=== PATIENT | female | born 1975 | race Caucasian/White ===

== ENCOUNTER → 2022-08-06 06:27 | Outpatient (CLI) | payer BC, SELFPAY ==
[2022-08-06 20:40] LABS: Alanine Aminotransferase 29 U/L (12-78); Albumin Level 4.1 g/dl (3.5-5.0); Albumin/Globulin Ratio 1.3 (1.1-1.8); Alkaline Phosphatase 144 U/L (38-126); Anion Gap 18.3 mEq/L (5-15); Aspartate Amino Transferase 55 U/L (14-36); Bilirubin,Total 0.9 mg/dl (0.2-1.3); Blood Urea Nitrogen 14 mg/dl (7-17); Calcium 9.1 mg/dl (8.4-10.2); Carbon Dioxide 25 mmol/L (22.0-30.0); Chloride 96 mmol/L (98-107); Chol/HDL Ratio 4.4 (1-3.5); Cholesterol 219 mg/dl (140-200); Estimated Glomerular Filt Rate 89 ml/min (>60); GFR (African American) 108 ML/MIN (>60); Globulin 3.2 g/dL (1.3-3.2); Glucose 100 mg/dl (74-100); HDL Cholesterol 50 mg/dl (40-60); Potassium 4.3 mmoL/L (3.5-5.1); Sodium 135 mmol/L (136-145); Total Protein,Serum 7.3 g/dl (6.3-8.2); Triglycerides 89 mg/dl (30-150); VLDL Cholesterol 18 mg/dL (0-40)
[2022-08-06 20:52] LABS: Direct LDL Cholesterol 143.27 mg/dL (100-129)
[2022-08-06 21:10] LABS: Thyroid Stimulating Hormone 1.44 uIU/mL (0.465-4.68)
[2022-08-06 22:08] LABS: 25-OH Vitamin D, Total 22.4 ng/mL (30-100)
[2022-08-06 22:09] LABS: Free T4 (Free Thyroxine) 1.81 ng/dl (0.78-2.19)
== END ==
PROVIDERS: PCP Nurse Practitioner; Visit Provider Nurse Practitioner
DX: E03.9 Hypothyroidism, unspecified (principal); I10 Essential (primary) hypertension; E66.9 Obesity, unspecified; E55.9 Vitamin D deficiency, unspecified; Z68.42 Body mass index [BMI] 45.0-49.9, adult; Z13.220 Encounter for screening for lipoid disorders; Z79.899 Other long term (current) drug therapy
CPT/HCPCS: 80053; 80061; 82306; 84439; 84443

== ENCOUNTER → 2022-11-05 08:40 | Outpatient (CLI) | payer BC, SELFPAY ==
[2022-11-05 20:24] LABS: Basophils # 0.1 K/mm3 (0-0.2); Basophils % 0.9 % (0.1-2.0); Eosinophils # 0.1 K/mm3 (0.0-0.4); Eosinophils % 2.1 % (0.1-12.0); Hematocrit 41.6 % (37.0-47.0); Lymphocytes # 1.9 K/mm3 (0.7-4.5); Lymphocytes % 29.3 % (10-50); Mean Corpuscular HGB Conc 31.2 g/dL (31.8-35.4); Mean Corpuscular Hemoglobin 26.6 pg (27.0-31.2); Mean Corpuscular Volume 85.3 fl (81-99); Monocytes # 0.3 K/mm3 (0.1-1.0); Monocytes % 4.2 % (1.7-9.3); Neutrophils # 4.1 K/mm3 (1.8-7.8); Neutrophils % 63.3 % (37.0-80.0); Platelet Count 386 K/mm3 (142-424); Red Blood Count 4.88 M/mm3 (4.20-5.40); Red Cell Distribution Width 13.9 % (11.5-17.5); White Blood Count 6.5 K/mm3 (4.8-10.8)
[2022-11-05 20:31] LABS: Alanine Aminotransferase 27 U/L (12-78); Albumin/Globulin Ratio 1.3 (1.1-1.8); Alkaline Phosphatase 139 U/L (38-126); Anion Gap 11.9 mEq/L (5-15); Aspartate Amino Transferase 45 U/L (14-36); Bilirubin,Total 0.5 mg/dl (0.2-1.3); Blood Urea Nitrogen 12 mg/dl (7-17); Calcium 9.6 mg/dl (8.4-10.2); Carbon Dioxide 27 mmol/L (22.0-30.0); Chloride 104 mmol/L (98-107); Chol/HDL Ratio 4.5 (1-3.5); Cholesterol 221 mg/dl (140-200); Estimated Glomerular Filt Rate 107 ml/min (>60); GFR (African American) 129 ML/MIN (>60); Globulin 3.1 g/dL (1.3-3.2); Glucose 127 mg/dl (74-100); HDL Cholesterol 49 mg/dl (40-60); Potassium 3.9 mmoL/L (3.5-5.1); Sodium 139 mmol/L (136-145); Total Protein,Serum 7.1 g/dl (6.3-8.2); Triglycerides 89 mg/dl (30-150); VLDL Cholesterol 18 mg/dL (0-40)
[2022-11-05 20:37] LABS: Hemoglobin A1C 5.7 % (4.0-6.0)
[2022-11-05 20:48] LABS: 25-OH Vitamin D, Total 41.7 ng/mL (30-100)
[2022-11-05 20:54] LABS: Microalbumin < 6.000 mg/L (0-16.7)
[2022-11-05 21:19] LABS: Vitamin B12 353 pg/mL (239-931)
== END ==
PROVIDERS: PCP Nurse Practitioner; Visit Provider Nurse Practitioner
DX: E03.9 Hypothyroidism, unspecified (principal); E78.5 Hyperlipidemia, unspecified; I10 Essential (primary) hypertension; E55.9 Vitamin D deficiency, unspecified; E66.9 Obesity, unspecified; Z68.42 Body mass index [BMI] 45.0-49.9, adult
CPT/HCPCS: 80053; 80061; 82043; 82306; 82607; 83036; 84439; 84443; 85025

== ENCOUNTER → 2023-01-28 23:20 | Outpatient (CLI) | payer BC, SELFPAY ==
[2023-01-28 18:56] LABS: Creatinine,Urine Random 84 mg/dL (Not Estab.)
[2023-01-28 18:59] LABS: Microalbumin < 6.000 mg/L (0-16.7)
== END ==
PROVIDERS: PCP Nurse Practitioner; Visit Provider Nurse Practitioner
DX: I10 Essential (primary) hypertension (principal)
CPT/HCPCS: 82043; 82570

== ENCOUNTER → 2023-04-29 08:42 | Outpatient (CLI) | payer BC, SELFPAY ==
[2023-04-29 19:31] LABS: Alanine Aminotransferase 22 U/L (12-78); Albumin Level 3.9 g/dl (3.5-5.0); Albumin/Globulin Ratio 1.3 (1.1-1.8); Alkaline Phosphatase 118 U/L (38-126); Anion Gap 15.6 mEq/L (5-15); Aspartate Amino Transferase 41 U/L (14-36); Bilirubin,Total 1.1 mg/dl (0.2-1.3); Blood Urea Nitrogen 12 mg/dl (7-17); Calcium 8.9 mg/dl (8.4-10.2); Carbon Dioxide 26 mmol/L (22.0-30.0); Chloride 100 mmol/L (98-107); Chol/HDL Ratio 3.8 (1-3.5); Cholesterol 204 mg/dl (140-200); Estimated Glomerular Filt Rate 131 ml/min (>60); GFR (African American) 159 ML/MIN (>60); Glucose 101 mg/dl (74-100); HDL Cholesterol 54 mg/dl (40-60); Potassium 3.6 mmoL/L (3.5-5.1); Sodium 138 mmol/L (136-145); Total Protein,Serum 6.9 g/dl (6.3-8.2); Triglycerides 96 mg/dl (30-150); VLDL Cholesterol 19 mg/dL (0-40)
[2023-04-29 19:43] LABS: Direct LDL Cholesterol 118.64 mg/dL (100-129)
[2023-04-29 19:48] LABS: Free T4 (Free Thyroxine) 1.69 ng/dl (0.78-2.19)
[2023-04-29 19:52] LABS: Hemoglobin A1C 5.3 % (4.0-6.0)
[2023-04-29 20:02] LABS: Thyroid Stimulating Hormone 1.39 uIU/mL (0.465-4.68)
[2023-04-29 20:22] LABS: Vitamin B12 310 pg/mL (239-931)
== END ==
PROVIDERS: PCP Nurse Practitioner; Visit Provider Nurse Practitioner
DX: E03.9 Hypothyroidism, unspecified (principal); E78.5 Hyperlipidemia, unspecified; I10 Essential (primary) hypertension; E66.9 Obesity, unspecified; Z68.42 Body mass index [BMI] 45.0-49.9, adult
CPT/HCPCS: 80053; 80061; 82607; 83036; 84439; 84443

== ENCOUNTER → 2023-06-03 23:35 | Outpatient (CLI) | payer BC, SELFPAY ==
[2023-06-03 19:26] LABS: Basophils % 0.6 % (0.1-2.0); Eosinophils # 0.1 K/mm3 (0.0-0.4); Eosinophils % 1.4 % (0.1-12.0); Hematocrit 40.3 % (37.0-47.0); Lymphocytes # 2.4 K/mm3 (0.7-4.5); Lymphocytes % 35.6 % (10-50); Mean Corpuscular HGB Conc 32.3 g/dL (31.8-35.4); Mean Corpuscular Hemoglobin 26.7 pg (27.0-31.2); Mean Corpuscular Volume 82.4 fl (81-99); Mean Platelet Volume 9.4 fl (7.4-10.4); Monocytes # 0.5 K/mm3 (0.1-1.0); Monocytes % 6.9 % (1.7-9.3); Neutrophils # 3.7 K/mm3 (1.8-7.8); Neutrophils % 55.5 % (37.0-80.0); Platelet Count 402 K/mm3 (142-424); Red Blood Count 4.89 M/mm3 (4.20-5.40); White Blood Count 6.7 K/mm3 (4.8-10.8)
== END ==
PROVIDERS: PCP Nurse Practitioner; Visit Provider Nurse Practitioner
DX: J06.9 Acute upper respiratory infection, unspecified (principal); R05.9 Cough, unspecified
CPT/HCPCS: 85025

== ENCOUNTER → 2023-07-30 11:00 | Outpatient (CLI) | payer BC, SELFPAY ==
[2023-07-30 18:34] LABS: Alanine Aminotransferase 26 U/L (12-78); Albumin Level 4.1 g/dl (3.5-5.0); Albumin/Globulin Ratio 1.2 (1.1-1.8); Alkaline Phosphatase 146 U/L (38-126); Anion Gap 13.5 mEq/L (5-15); Aspartate Amino Transferase 42 U/L (14-36); Bilirubin,Total 1.1 mg/dl (0.2-1.3); Blood Urea Nitrogen 11 mg/dl (7-17); Calcium 9.6 mg/dl (8.4-10.2); Carbon Dioxide 28 mmol/L (22.0-30.0); Chloride 101 mmol/L (98-107); Chol/HDL Ratio 4.6 (1-3.5); Cholesterol 220 mg/dl (140-200); Estimated Glomerular Filt Rate 106 ml/min (>60); GFR (African American) 129 ML/MIN (>60); Globulin 3.5 g/dL (1.3-3.2); Glucose 101 mg/dl (74-100); HDL Cholesterol 48 mg/dl (40-60); Potassium 3.5 mmoL/L (3.5-5.1); Sodium 139 mmol/L (136-145); Total Protein,Serum 7.6 g/dl (6.3-8.2); Triglycerides 96 mg/dl (30-150); VLDL Cholesterol 19 mg/dL (0-40)
[2023-07-30 18:51] LABS: 25-OH Vitamin D, Total 62.4 ng/mL (30-100)
[2023-07-30 19:24] LABS: Vitamin B12 467 pg/mL (239-931)
== END ==
PROVIDERS: PCP Nurse Practitioner; Visit Provider Nurse Practitioner
DX: I10 Essential (primary) hypertension (principal); E55.9 Vitamin D deficiency, unspecified; E78.5 Hyperlipidemia, unspecified; E66.9 Obesity, unspecified; Z68.41 Body mass index [BMI] 40.0-44.9, adult
CPT/HCPCS: 80053; 80061; 82306; 82607

== ENCOUNTER → 2023-10-29 23:19 | Outpatient (CLI) | payer BC, SELFPAY ==
[2023-10-29 18:53] LABS: Hemoglobin A1C 5.3 % (4.0-6.0)
[2023-10-29 19:05] LABS: Alanine Aminotransferase 29 U/L (12-78); Albumin Level 4.2 g/dl (3.5-5.0); Albumin/Globulin Ratio 1.3 (1.1-1.8); Alkaline Phosphatase 122 U/L (38-126); Anion Gap 11.7 mEq/L (5-15); Aspartate Amino Transferase 48 U/L (14-36); Bilirubin,Total 0.7 mg/dl (0.2-1.3); Blood Urea Nitrogen 16 mg/dl (7-17); Carbon Dioxide 26 mmol/L (22.0-30.0); Chloride 103 mmol/L (98-107); Chol/HDL Ratio 4.5 (1-3.5); Cholesterol 212 mg/dl (140-200); Estimated Glomerular Filt Rate 106 ml/min (>60); GFR (African American) 129 ML/MIN (>60); Globulin 3.2 g/dL (1.3-3.2); Glucose 98 mg/dl (74-100); HDL Cholesterol 47 mg/dl (40-60); Potassium 3.7 mmoL/L (3.5-5.1); Sodium 137 mmol/L (136-145); Total Protein,Serum 7.4 g/dl (6.3-8.2); Triglycerides 83 mg/dl (30-150); VLDL Cholesterol 17 mg/dL (0-40)
[2023-10-29 19:19] LABS: Direct LDL Cholesterol 131.69 mg/dL (100-129)
[2023-10-29 19:22] LABS: Free T4 (Free Thyroxine) 1.65 ng/dl (0.78-2.19)
[2023-10-29 19:35] LABS: Thyroid Stimulating Hormone 0.95 uIU/mL (0.465-4.68)
== END ==
PROVIDERS: PCP Nurse Practitioner; Visit Provider Nurse Practitioner
DX: E03.9 Hypothyroidism, unspecified (principal); E78.5 Hyperlipidemia, unspecified; I10 Essential (primary) hypertension; E66.9 Obesity, unspecified; Z68.41 Body mass index [BMI] 40.0-44.9, adult
CPT/HCPCS: 80053; 80061; 83036; 84439; 84443

== ENCOUNTER 2024-02-03 18:23 | Outpatient (CLI) | payer BC, SELFPAY ==
[2024-02-03 18:40] LABS: Alanine Aminotransferase 26 U/L (12-78); Albumin Level 4.5 g/dl (3.5-5.0); Albumin/Globulin Ratio 1.3 (1.1-1.8); Alkaline Phosphatase 139 U/L (38-126); Anion Gap 14.2 mEq/L (5-15); Aspartate Amino Transferase 35 U/L (14-36); Bilirubin,Total 0.8 mg/dl (0.2-1.3); Blood Urea Nitrogen 14 mg/dl (7-17); Calcium 9.6 mg/dl (8.4-10.2); Carbon Dioxide 26 mmol/L (22.0-30.0); Chloride 103 mmol/L (98-107); Cholesterol 235 mg/dl (140-200); Estimated Glomerular Filt Rate 106 ml/min (>60); GFR (African American) 128 ML/MIN (>60); Globulin 3.4 g/dL (1.3-3.2); Glucose 101 mg/dl (74-100); HDL Cholesterol 47 mg/dl (40-60); Potassium 4.2 mmoL/L (3.5-5.1); Sodium 139 mmol/L (136-145); Total Protein,Serum 7.9 g/dl (6.3-8.2); Triglycerides 137 mg/dl (30-150); VLDL Cholesterol 27 mg/dL (0-40)
[2024-02-03 18:51] LABS: Direct LDL Cholesterol 134.34 mg/dL (100-129)
[2024-02-03 18:54] LABS: Creatinine,Urine Random 90 mg/dL (Not Estab.)
[2024-02-03 19:17] LABS: Hemoglobin A1C 5.6 % (4.0-6.0)
[2024-02-03 19:18] LABS: Microalbumin < 6.000 mg/L (0-16.7)
== END 2024-02-03 23:59 ==
LOC: LAB.DROPOF 18:24
PROVIDERS: PCP Nurse Practitioner; Visit Provider Nurse Practitioner
DX: I10 Essential (primary) hypertension (principal); E78.5 Hyperlipidemia, unspecified; E66.9 Obesity, unspecified; Z68.41 Body mass index [BMI] 40.0-44.9, adult
CPT/HCPCS: 80053; 80061; 82043; 82570; 83036

== ENCOUNTER 2024-05-05 09:12 | Outpatient (CLI) | payer BC, SELFPAY ==
[2024-05-05 18:50] LABS: Alanine Aminotransferase 25 U/L (12-78); Albumin Level 4.2 g/dl (3.5-5.0); Albumin/Globulin Ratio 1.4 (1.1-1.8); Alkaline Phosphatase 129 U/L (38-126); Anion Gap 13.8 mEq/L (5-15); Aspartate Amino Transferase 35 U/L (14-36); Bilirubin,Total 0.9 mg/dl (0.2-1.3); Blood Urea Nitrogen 14 mg/dl (7-17); Calcium 9.3 mg/dl (8.4-10.2); Carbon Dioxide 28 mmol/L (22.0-30.0); Chloride 101 mmol/L (98-107); Chol/HDL Ratio 4.6 (1-3.5); Cholesterol 228 mg/dl (140-200); Estimated Glomerular Filt Rate 131 ml/min (>60); GFR (African American) 158 ML/MIN (>60); Globulin 3.1 g/dL (1.3-3.2); Glucose 97 mg/dl (74-100); HDL Cholesterol 50 mg/dl (40-60); Potassium 3.8 mmoL/L (3.5-5.1); Sodium 139 mmol/L (136-145); Total Protein,Serum 7.3 g/dl (6.3-8.2); Triglycerides 93 mg/dl (30-150); VLDL Cholesterol 19 mg/dL (0-40)
[2024-05-05 19:02] LABS: Direct LDL Cholesterol 139.23 mg/dL (100-129)
[2024-05-05 19:08] LABS: Free T4 (Free Thyroxine) 1.46 ng/dl (0.78-2.19)
[2024-05-05 19:28] LABS: Hemoglobin A1C 5.2 % (4.0-6.0)
[2024-05-05 20:14] LABS: Thyroid Stimulating Hormone 1.74 uIU/mL (0.465-4.68)
== END 2024-05-05 23:59 | disposition home or self-care (01) ==
LOC: LAB.DROPOF 05-06 09:12
PROVIDERS: PCP Nurse Practitioner; Visit Provider Nurse Practitioner
DX: E03.9 Hypothyroidism, unspecified (principal); I10 Essential (primary) hypertension; E78.5 Hyperlipidemia, unspecified; Z68.41 Body mass index [BMI] 40.0-44.9, adult; E66.9 Obesity, unspecified
CPT/HCPCS: 80053; 80061; 83036; 84439; 84443

== ENCOUNTER 2024-08-05 08:52 | Outpatient (CLI) | payer BC, SELFPAY ==
[2024-08-05 18:25] LABS: Microalbumin < 6.000 mg/L (0-16.7)
[2024-08-05 18:26] LABS: Creatinine,Urine Random 73 mg/dL (Not Estab.)
[2024-08-05 18:33] LABS: Basophils # 0.1 K/mm3 (0-0.2); Basophils % 0.7 % (0.1-2.0); Eosinophils # 0.2 K/mm3 (0.0-0.4); Hematocrit 45.7 % (37.0-47.0); Hemoglobin 14.1 g/dL (12.2-16.2); Lymphocytes # 2.2 K/mm3 (0.7-4.5); Lymphocytes % 27.4 % (10-50); Mean Corpuscular HGB Conc 30.9 g/dL (31.8-35.4); Mean Corpuscular Hemoglobin 27.9 pg (27.0-31.2); Mean Corpuscular Volume 90.5 fl (81-99); Mean Platelet Volume 11.1 fl (7.4-10.4); Monocytes # 0.4 K/mm3 (0.1-1.0); Neutrophils # 5.3 K/mm3 (1.8-7.8); Neutrophils % 64.9 % (37.0-80.0); Platelet Count 367 K/mm3 (142-424); Red Blood Count 5.05 M/mm3 (4.20-5.40); Red Cell Distribution Width 14.1 % (11.5-17.5); White Blood Count 8.1 K/mm3 (4.8-10.8)
[2024-08-05 18:58] LABS: Alanine Aminotransferase 25 U/L (12-78); Albumin/Globulin Ratio 1.1 (1.1-1.8); Alkaline Phosphatase 104 U/L (38-126); Aspartate Amino Transferase 33 U/L (14-36); Bilirubin,Total 0.7 mg/dl (0.2-1.3); Blood Urea Nitrogen 14 mg/dl (7-17); Calcium 9.6 mg/dl (8.4-10.2); Carbon Dioxide 26 mmol/L (22.0-30.0); Chloride 106 mmol/L (98-107); Chol/HDL Ratio 4.2 (1-3.5); Cholesterol 228 mg/dl (140-200); Estimated Glomerular Filt Rate 131 ml/min (>60); GFR (African American) 158 ML/MIN (>60); Globulin 3.5 g/dL (1.3-3.2); Glucose 93 mg/dl (74-100); HDL Cholesterol 54 mg/dl (40-60); Sodium 138 mmol/L (136-145); Total Protein,Serum 7.5 g/dl (6.3-8.2); Triglycerides 90 mg/dl (30-150); VLDL Cholesterol 18 mg/dL (0-40)
[2024-08-05 19:10] LABS: 25-OH Vitamin D, Total 67.9 ng/mL (30-100)
[2024-08-05 19:14] LABS: Direct LDL Cholesterol 147.02 mg/dL (100-129)
[2024-08-05 19:48] LABS: Vitamin B12 470 pg/mL (239-931)
== END 2024-08-05 23:59 | disposition home or self-care (01) ==
LOC: LAB.DROPOF 08-06 10:04
PROVIDERS: PCP Nurse Practitioner; Visit Provider Nurse Practitioner
DX: I10 Essential (primary) hypertension (principal); E03.9 Hypothyroidism, unspecified; E66.9 Obesity, unspecified; E78.5 Hyperlipidemia, unspecified; E55.9 Vitamin D deficiency, unspecified; Z68.41 Body mass index [BMI] 40.0-44.9, adult
CPT/HCPCS: 80053; 80061; 82043; 82306; 82570; 82607; 85025

== ENCOUNTER 2024-11-07 10:17 | Outpatient (CLI) | payer BC, SELFPAY ==
[2024-11-07 11:42] LABS: Erythrocyte Sedimentation Rate 87 mm/hr (0-30)
[2024-11-07 11:57] LABS: Hemoglobin A1C 5.3 % (4.0-6.0)
[2024-11-07 12:24] LABS: Albumin Level 4.3 g/dl (3.5-5.0); Chloride 103 mmol/L (98-107); Potassium 3.7 mmoL/L (3.5-5.1); Sodium 139 mmol/L (136-145)
[2024-11-07 12:27] LABS: Alanine Aminotransferase 23 U/L (12-78); Albumin/Globulin Ratio 1.5 (1.1-1.8); Alkaline Phosphatase 133 U/L (38-126); Anion Gap 10.7 mEq/L (5-15); Aspartate Amino Transferase 36 U/L (14-36); Bilirubin,Total 1.1 mg/dl (0.2-1.3); Blood Urea Nitrogen 11 mg/dl (7-17); Calcium 9.4 mg/dl (8.4-10.2); Carbon Dioxide 29 mmol/L (22.0-30.0); Chol/HDL Ratio 4.5 (1-3.5); Cholesterol 217 mg/dl (140-200); Estimated Glomerular Filt Rate 88 ml/min (>60); GFR (African American) 107 ML/MIN (>60); Globulin 2.9 g/dL (1.3-3.2); Glucose 93 mg/dl (74-100); HDL Cholesterol 48 mg/dl (40-60); Total Protein,Serum 7.2 g/dl (6.3-8.2); Triglycerides 91 mg/dl (30-150); VLDL Cholesterol 18 mg/dL (0-40)
[2024-11-07 12:33] LABS: C-Reactive Protein 20.7 mg/L (0-4)
[2024-11-07 12:38] LABS: Direct LDL Cholesterol 132.46 mg/dL (100-129)
[2024-11-07 12:45] LABS: Free T4 (Free Thyroxine) 1.33 ng/dl (0.78-2.19)
[2024-11-07 12:58] LABS: Thyroid Stimulating Hormone 1.36 uIU/mL (0.465-4.68)
[2024-11-07 15:13] LABS: Uric Acid 5.5 mg/dl (2.5-6.2)
[2024-11-09 11:25] LABS: Anti-Centromere B Antibodies <0.2 AI (0.0-0.9); Anti-DNA (DS) Ab Qn <1 IU/mL (0-9); Anti-Jo-1 <0.2 AI (0.0-0.9); Anti-Smith Antibody <0.2 AI (0.0-0.9); Antichromatin Antibodies <0.2 AI (0.0-0.9); Antiscleroderma-70 Antibodies <0.2 AI (0.0-0.9); RNP Antibodies <0.2 AI (0.0-0.9); Sjogren's Anti-SS-A <0.2 AI (0.0-0.9); Sjogren's Anti-SS-B <0.2 AI (0.0-0.9)
[2024-11-09 14:18] LABS: RA Latex Turbid. 11.7 IU/mL (<14.0)
[2024-11-10 09:58] LABS: Antinuclear Antibodies, IFA Negative (.)
== END 2024-11-07 23:59 | disposition home or self-care (01) ==
LOC: LAB 10:19
PROVIDERS: PCP Nurse Practitioner; Visit Provider Nurse Practitioner
DX: I10 Essential (primary) hypertension (principal); E03.9 Hypothyroidism, unspecified; E66.9 Obesity, unspecified; E78.5 Hyperlipidemia, unspecified; M25.50 Pain in unspecified joint; Z68.41 Body mass index [BMI] 40.0-44.9, adult
CPT/HCPCS: 36415; 80053; 80061; 83036; 84439; 84443; 84550; 85651; 86038; 86140; 86225; 86235; 86431

== ENCOUNTER 2025-08-10 10:01 | Outpatient (CLI) | payer BC, SELFPAY ==
[2025-08-10 14:59] LABS: Hematocrit 40.8 % (37.0-47.0); Hemoglobin 12.9 g/dL (12.2-16.2); Immature Granulocytes % 0.3 %; Mean Corpuscular HGB Conc 31.6 g/dL (31.8-35.4); Mean Corpuscular Hemoglobin 26.5 pg (27.0-31.2); Mean Corpuscular Volume 83.8 fl (81-99); Nucleated Red Blood Cells % 0 %; Platelet Count 376 K/mm3 (142-424); Red Blood Count 4.87 M/mm3 (4.20-5.40); Red Cell Distribution Width-SD 42.9 fL; White Blood Count 8.9 K/mm3 (4.8-10.8)
[2025-08-10 16:06] LABS: Alanine Aminotransferase 22 U/L (12-78); Albumin Level 4.3 g/dl (3.5-5.0); Albumin/Globulin Ratio 1.3 (1.1-1.8); Alkaline Phosphatase 124 U/L (38-126); Anion Gap 13.1 mEq/L (5-15); Aspartate Amino Transferase 34 U/L (14-36); Bilirubin,Total 0.9 mg/dl (0.2-1.3); Blood Urea Nitrogen 13 mg/dl (7-17); Calcium 9.3 mg/dl (8.4-10.2); Carbon Dioxide 30 mmol/L (22.0-30.0); Chloride 100 mmol/L (98-107); Cholesterol 227 mg/dl (140-200); Creatinine,Serum 0.60 mg/dl (0.52-1.04); Estimated Glomerular Filt Rate 105 ml/min (>60); GFR (African American) 128 ML/MIN (>60); Globulin 3.3 g/dL (1.3-3.2); Glucose 128 mg/dl (74-100); HDL Cholesterol 55 mg/dl (40-60); Potassium 4.1 mmoL/L (3.5-5.1); Sodium 139 mmol/L (136-145); Total Protein,Serum 7.6 g/dl (6.3-8.2); Triglycerides 112 mg/dl (30-150); Uric Acid 5.1 mg/dl (2.5-6.2)
[2025-08-10 16:18] LABS: 25-OH Vitamin D, Total 63.6 ng/mL (30-100)
[2025-08-10 16:22] LABS: C-Reactive Protein 23.5 mg/L (0-4)
[2025-08-10 16:38] LABS: Free T4 (Free Thyroxine) 1.35 ng/dl (0.78-2.19)
[2025-08-10 16:39] LABS: Thyroid Stimulating Hormone 1.70 uIU/mL (0.465-4.68)
[2025-08-10 17:10] LABS: Hepatitis C Ab Qual. W/ RFX NEGATIVE (Negative)
--- OUTSIDE RECORDS SUMMARY | 2025-08-11 13:04 | XMS_ITS | Clinical Summary ---
Author Organization [facility] Address [address] [place], [place] [address] Phone Care Team Providers Care Room Service Food Server Name Role Phone Unavailable Primary Care Provider Unavailabl e Allergies No known active allergies Medications acetaminophen (TYLENOL) 500 mg Oral Tablet Take 2 Tabs by mouth every 8 hours as needed for Pain. 60 Tab 05/01/2021 11:09 AM EDT 05/01/2021 Active aspirin 325 mg Oral Tablet, Delayed Release (E.C.) Take 1 Tab by mouth daily. 30 Tab 05/01/2021 11:09 AM EDT 05/01/2021 Active tiZANidine (ZANAFLEX) 2 mg Oral Tablet Take 1 Tab by mouth every 8 hours as needed. 60 Tab 05/01/2021 11:09 AM EDT 05/01/2021 Active oxyCODONE (ROXICODONE) 5 mg Oral TabletIndication s:S/P total knee arthroplasty, right Take 1-2 Tabs by mouth every 8 hours as needed for Major Surgery/Tra mervin (G89.18). 60 Tab 05/11/2021 Active tiZANidine (ZANAFLEX) 4 mg Oral TabletIndication s:S/P total knee arthroplasty, right TAKE 1/2 TABLET BY MOUTH 3 TIMES DAILY. 60 Tablet 07/10/2021 Active LEVOthyroxine (SYNTHROID) 50 mcg Oral Tablet Take 5 mcg by mouth. 08/02/2021 Active losartan (COZAAR) 25 mg Oral Tablet Take 25 mg by mouth daily. 08/01/2021 Active traMADoL (ULTRAM) 50 mg Oral TabletIndication s:Pain in right knee Take 1 Tablet by mouth daily as needed. for pain 30 Tablet 01/22/2022 Active Active Problems Problem Noted Date Diagnosed Date S/P total knee arthroplasty, right 05/05/2021 Chronic pain of right knee 04/18/2021 Primary osteoarthritis of right knee 04/18/2021 Surgical History Surgery Date Site/Laterality Comments DENTAL SURGERY JOINT REPLACEMENT 05/01/2021 Right RIGHT KNEE TOTAL KNEE REPLACEMENT; Surgeon: Antolin Gant MD; Location: [facility] MAIN OR; Service: Orthopedics Medical devices from this surgery are in the Medical Devices section. Medical History Medical History Date Comments Arthritis Anemia during Family History Medical History Relation Name Comments Anesth Problems Neg Hx Social History Tobacco Use Types Packs/Day Years Used Date Smoking Tobacco: Never Smokeless Tobacco: Never Alcohol Use Standard Drinks/Week Comments Yes 0 (1 standard drink = 0.6 oz pur e alcohol) rarely Comments No Sex and Gender Information Value Date Recorded Sex Assigned at Not on file Legal Sex Female 5:28 AM EDT Gender Identity Not on file Sexual Orientation Not on file Obstetrics History Last Filed Vital Signs Vital Sign Reading Time Taken Comments Blood Pressure 160/82 05/01/2021 12:50 PM EDT Pulse 78 05/01/2021 12:50 PM EDT Temperature 36.5 C (97.7 F) 05/01/2021 12:50 PM EDT Respiratory Rate 18 05/01/2021 12:50 PM EDT Oxygen Saturation 100% 05/01/2021 12:50 PM EDT Inhaled Oxygen Concentration - - Weight 135.2 kg (298 lb) 05/01/2021 7:31 AM EDT Height 167.6 cm (5' 6 ) 05/01/2021 7:31 AM EDT Body Mass Index 48.1 05/01/2021 7:31 AM EDT Plan of Treatment Health Maintenance Due Date Last Done Comments Annual Wellness Exam 1976 DTaP/TDaP/Td (1 - Tdap) 1992 Hepatitis B Vaccine (1 of 3 - 19+ 3-dose series) 1992 Cervical Cancer Screening 1994 Pap Smear 1994 HPV/Pap Cotest 2003 Cologuard 2018 Colon Cancer Screening 2018 Colonoscopy 2018 FIT 2018 Sigmoidoscopy 2018 Virtual Colonography 2018 Breast Cancer Screening 01/14/2020 01/14/20 18, 10/22/2008, 10/22/2008 Pneumococcal Vaccine 50+ (1 of 1 - PCV) 2023 Zoster (1 of 2) 2023 COVID-19 Vaccine (4 - 2024-2 6 season) 2025 06/30/2022, 12/15/2021, 11/24/2021 Influenza Vaccine (#1) 2025 Meningococcal B Vaccine Aged Out No l onger eligible based on patient's age to complete this topic Medical Devices Implanted Type Area Plow And Boring Machine Tender Device Identifier Shelf Expiration Date Model / Serial / Lot Patlr 29x9mm Triath Tritan Mtl Asym Kn - [id number] Implanted:Qty: 1 on 05/01/2021 by Antolin Gant MD at [facility] Right: Knee STARLA:ORTH[employer] CS 10/16/2022 [id number] / / [id number] Comp Fem Sz3 Triath Rt Kn Cr Ncem Periapt Ctd Bead - [id number] Implanted:Qty: 1 on 05/01/2021 by Antolin Gant MD at [facility] Right: Knee STARLA:ORTHOP[employer]I CS 07/13/2025 [id number] / / [id number] Baseplate Tib Sz3 Total Stabilized Revisn Triath Tritan - [id number] Implanted:Qty: 1 on 05/01/2021 by Antolin Gant MD at [facility] Right: Knee STARLA:ORTHOPEDI CS 10/16/2025 [id number] / / [id number] Liner Tib Sz3 9mm Triath Art Condl Stabx3 - [id number] Implanted:Qty: 1 on 05/01/2021 by Antolin Gant MD at [facility] Right: Knee STARLA:ORTHOPEDI CS 07/25/2025 [id number] / / [id number] Procedures Procedure Name Priority Date/Time Associated Diagnosis Comments MM MOBILE MAMMO DIGITAL SCREEN W CAD ZACK Routine 01/14/2018 1:40 PM EST Encounter for screening mammogram for malignant neoplasm of breast from Last 3 Months or Most Recently Relevant to Health Maintenance Results * MM MOBILE MAMMO DIGITAL SCREEN W CAD ZACK (01/14/2018 1:40 PM EST) Anatomical Region Laterality Modality Breast Mammography 01/16/2018 6:30 AM EST Impressions 01/16/2018 12:06 PM EST : Negative ([id number]) ~ RECOMMENDATION: Routine screening mammogram in 1 year. ~ DISCLAIMER * Any patient with a palpable abnormality, unexplained by breast imaging, should be managed on clinical basis by the attending physician. * Breast imaging has a false negative rate of 15%. * The patient was notified by mail of the results of this examination. *The patient's information was entered into a reminder system with a target due date for the next mammogram. The mammogram was reviewed by a Radiologist and CAD. Narrative 01/16/2018 12:06 PM EST Procedure:MM MOBILE MAMMO DIGITAL SCREEN W CAD ZACK ~ Reason for exam: screening, asymptomatic. ~ MM MOBILE MAMMO DIGITAL SCREEN W CAD ZACK Bilateral CC and MLO view(s) were taken. Prior study comparison: October 22, 2008, bilateral MM DIGITAL DIAG BILAT PANEL performed at [facility]. There are scattered fibroglandular densities. No suspicious calcifications. Compared with prior studies the most recent being 10-22-08 ~ Leslie Denton APRN IMG MAMMOGRAPHY ORDERABLES Maris l Result from Last 3 Months or Most Recently Relevant to Health Maintenance Insurance [employer] PPO ANTH PPO
[2025-08-12 10:14] LABS: RA Latex Turbid. 11.4 IU/mL (<14.0)
[2025-08-12 15:12] LABS: Antinuclear Antibodies, IFA Negative (.)
[2025-08-12 23:16] LABS: Hepatitis B Surface Antigen Negative (Negative)
== END 2025-08-10 23:59 | disposition home or self-care (01) ==
LOC: LAB.DROPOF 08-11 13:02
PROVIDERS: PCP Nurse Practitioner; Visit Provider Nurse Practitioner
DX: E55.9 Vitamin D deficiency, unspecified (principal); Z11.59 Encounter for screening for other viral diseases; I10 Essential (primary) hypertension; M25.50 Pain in unspecified joint; R70.0 Elevated erythrocyte sedimentation rate; E78.5 Hyperlipidemia, unspecified; E03.9 Hypothyroidism, unspecified
CPT/HCPCS: 80053; 80061; 82043; 82306; 82570; 84439; 84443; 84550; 85025; 85651; 86038; 86140; 86225; 86235; 86431; 86803; 87340; 87389

== ENCOUNTER 2025-11-10 09:08 | Outpatient (CLI) | payer BC, SELFPAY ==
--- OUTSIDE RECORDS SUMMARY | 2025-09-22 14:00 | XMS_ITS | Encounter Summary ---
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 Role Phone Unavailable Primary Care Provider Unavailabl e Reason for Visit * Reason Comments Establish Care Abnormal Lab Encounter Details Date Type Department Care Team (Latest Contact Info) Description 09/22/2025 3:00 PM EDT Office Visit [facility] [address] [place] [address] Coral Tomlin MD [address] [place] [address] Sedimentation rate elevation (Primary Dx); Elevated C-reactive protein; Other fatigue; S/P total knee arthroplasty, right; Osteoarthritis of left knee, unspecified osteoarthritis type; Acute arthritis Social History Tobacco Use Types Packs/Day Years Used Date Smoking Tobacco: Never Smokeless Tobacco: Never Alcohol Use Standard Drinks/Week Comments Not Currently 0 (1 standard drink = 0.6 oz pur e alcohol) rarely Sexually Active Control Partners Comments Yes Other-see comments Male Essure Comments No Sex and Gender Information Value Date Recorded Sex Assigned at Not on file Legal Sex Female 5:28 AM EDT Gender Identity Not on file Sexual Orientation Not on file 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 Subjective Subjective: Patient ID: Cristina Awan is a 49 y.o. female. Chief Complaint Patient presents with [facility] Abnormal Lab HPI: Cristina Awan is a 49 y.o.female who presents for a new patient visit. She was referred by her PCPLeslie Garay NP Reason for referral:polyarthralgia, elevated sed, C-RP Review of outside records: - sed rate 85, C-RP 23 HPI: She developed pain in bilateral knees in her early 40s, she was diagnosed with OA bilateral knees, tried steroid injections in bilateral knees, she underwent right TKR at the age of 45, she c/o pain in right knee, her symptoms did not completely go away after surgery. She also has pain in bilateral shoulders, hips, worse while lying on her sides, stiffness in her hands, she takes motrin as needed, which helps. ROS negative for eye inflammation, psoriasis, IBD , LBA, dactylitis, HIV, STDs, skin rash, numbness, tingling, headaches, vision changes, weight loss, fevers, LN Her father has psA. Medication safety questionnaire DVT:no PE: no ID:no Heart failure: no Stroke: no Shingles:no diverticulitis: no IBD: no skin psoriasis: no depression: no post menopausal: at the age of 45, no HRT Cancer including skin cancer: no Multiple sclerosis: no, FH:no The pain / function / disease activity questionnaire was filled out by the patient and reviewed with me. Function on mHAQ = 3.3 Pain on 10-cm VAS = 5 PTGL= 5 Disease Activity on RAPID 3 = 4 REVIEW OF SYSTEMS See HPI for further details. Review of systems otherwise negative. Past Medical History: Diagnosis Date Anemia during Arthritis Hypertension Hypothyroidism Social History Tobacco Use Smoking status: Never Smokeless tobacco: Never Substance Use Topics Alcohol use: Not Currently Comment: rarely Family History Problem Relation Age of Onset Osteoarthritis Father 30 - 39 Arthritis Father 30 - 39 Psoriatic and Osteoarthritis Osteoarthritis Maternal Grandmother 50 - 59 Diabetes Maternal Grandmother 60 - 69 Hypertension Maternal Grandmother 50 - 59 Arthritis Maternal Grandmother 50 - 59 Coronary Art Dis Paternal Grandmother 50 - 59 Anesth Problems Neg Hx No Known Allergies Outpatient Medications Marked as Taking for the 09/22/25 encounter (Office Visit) with Coral Tomlin MD Medication Sig Dispense Refill amLODIPine (NORVASC) 5 mg Oral Tablet Take 5 mg by mouth daily. Cholecalciferol, Vitamin D3, 125 mcg (5,000 unit) Oral Tablet Take 5,000 Units by mouth daily. LEVOthyroxine (SYNTHROID) 50 mcg Oral Tablet Take 50 mcg by mouth. losartan-hydrochlorothiazide (HYZAAR) 50-12.5 mg Oral Tablet Take 1 Tablet by mouth 2 times daily. MOUNJARO 5 mg/0.5 mL SubQ Pen Injector inject 0.5 ml subcutaneously weekly Objective: Vital Signs: BP 146/86 (BP Location: Left arm, Patient Position: Sitting) Temp 97.7 ??F (36.5 ??C) (Forehead) Ht 5' 6 (1.676 m) Wt (!) 300 lb 6.4 oz (136.3 kg) LMP 01/23/2021 BMI 48.49 kg/m?? Body mass index is 48.49 kg/m??. Physical Exam CONST: well developed, well nourished, no apparent distress EYES: pupils equal/ round/ sclera white, conjunctiva pink and moist ENT: oropharynx clear without exudates, mucus membranes moist NECK: supple without lymphadenopathy, no thyromegaly, no masses RESP: clear to auscultation bilaterally without wheezes/rhonchi/rales CV: regular rate and rhythm without murmurs/rubs/gallops, no edema/cyanosis/clubbing SKIN: no rash, no indurations, nodules, or tightening. MSK: mild fullness left 4 MCP Assessment and Plan: Diagnoses and all orders for this visit: Sedimentation rate elevation - SEDIMENTATION RATE AUTOMATED-QUEST; Future - C REACTIVE PROTEIN-QUEST; Future - RHEUMATOID FACTOR QUANTITATIVE-QUEST; Future - CYCLIC CITULLINATED PEPTIDE (CCP) AB (IGG)-QUEST; Future - HLA-B27 ANTIGEN-QUEST; Future - CREATINE KINASE-QUEST; Future - HEMA SCR,IFA W/REFL TITER/ PATTERN/MPX AB CASCADE-QUEST; Future - XR KNEE BILATERAL PA OR AP AND LATERAL; Future - QUANTIFERON(R)-TB GOLD-QUEST; Future - MYOSITIS SPECIFIC 11 ANTIBODY PANEL-QUEST; Future - sed rate 85, C-RP 23, polyarthralgia: bilateral hips, shoulders, knees, no e/o synovitis,FH of psA in father - Plan: RF, CCP, HEMA, HLA-B27, sed, C-RP, xrays bilateral knees Elevated C-reactive protein - SEDIMENTATION RATE AUTOMATED-QUEST; Future - C REACTIVE PROTEIN-QUEST; Future - RHEUMATOID FACTOR QUANTITATIVE-QUEST; Future - CYCLIC CITULLINATED PEPTIDE (CCP) AB (IGG)-QUEST; Future - HLA-B27 ANTIGEN-QUEST; Future - CREATINE KINASE-QUEST; Future - HEMA SCR,IFA W/REFL TITER/ PATTERN/MPX AB CASCADE-QUEST; Future - XR KNEE BILATERAL PA OR AP AND LATERAL; Future - QUANTIFERON(R)-TB GOLD-QUEST; Future - MYOSITIS SPECIFIC 11 ANTIBODY PANEL-QUEST; Future Other fatigue - SEDIMENTATION RATE AUTOMATED-QUEST; Future - C REACTIVE PROTEIN-QUEST; Future - RHEUMATOID FACTOR QUANTITATIVE-QUEST; Future - CYCLIC CITULLINATED PEPTIDE (CCP) AB (IGG)-QUEST; Future - HLA-B27 ANTIGEN-QUEST; Future - CREATINE KINASE-QUEST; Future - HEMA SCR,IFA W/REFL TITER/ PATTERN/MPX AB CASCADE-QUEST; Future - XR KNEE BILATERAL PA OR AP AND LATERAL; Future - QUANTIFERON(R)-TB GOLD-QUEST; Future - MYOSITIS SPECIFIC 11 ANTIBODY PANEL-QUEST; Future - LACTATE DEHYDROGENASE-QUEST; Future - IRON, TIBC, AND FERRITIN PANEL-QUEST; Future S/P total knee arthroplasty, right - SEDIMENTATION RATE AUTOMATED-QUEST; Future - C REACTIVE PROTEIN-QUEST; Future - RHEUMATOID FACTOR QUANTITATIVE-QUEST; Future - CYCLIC CITULLINATED PEPTIDE (CCP) AB (IGG)-QUEST; Future - HLA-B27 ANTIGEN-QUEST; Future - CREATINE KINASE-QUEST; Future - HEMA SCR,IFA W/REFL TITER/ PATTERN/MPX AB CASCADE-QUEST; Future - XR KNEE BILATERAL PA OR AP AND LATERAL; Future - QUANTIFERON(R)-TB GOLD-QUEST; Future Osteoarthritis of left knee, unspecified osteoarthritis type - SEDIMENTATION RATE AUTOMATED-QUEST; Future - C REACTIVE PROTEIN-QUEST; Future - RHEUMATOID FACTOR QUANTITATIVE-QUEST; Future - CYCLIC CITULLINATED PEPTIDE (CCP) AB (IGG)-QUEST; Future - HLA-B27 ANTIGEN-QUEST; Future - CREATINE KINASE-QUEST; Future - HEMA SCR,IFA W/REFL TITER/ PATTERN/MPX AB CASCADE-QUEST; Future - XR KNEE BILATERAL PA OR AP AND LATERAL; Future - QUANTIFERON(R)-TB GOLD-QUEST; Future Acute arthritis - SEDIMENTATION RATE AUTOMATED-QUEST; Future - C REACTIVE PROTEIN-QUEST; Future - RHEUMATOID FACTOR QUANTITATIVE-QUEST; Future - CYCLIC CITULLINATED PEPTIDE (CCP) AB (IGG)-QUEST; Future - HLA-B27 ANTIGEN-QUEST; Future - CREATINE KINASE-QUEST; Future - HEMA SCR,IFA W/REFL TITER/ PATTERN/MPX AB CASCADE-QUEST; Future - XR KNEE BILATERAL PA OR AP AND LATERAL; Future - QUANTIFERON(R)-TB GOLD-QUEST; Future - LACTATE DEHYDROGENASE-QUEST; Future - IRON, TIBC, AND FERRITIN PANEL-QUEST; Future Instructions: - blood work - xray bilateral knees - RTC in 7 days This is a moderate complexity [id number]-ozgtdkod-[id number] visit based on reviewing outside records, reviewing outside results, obtaining history and physical examination, and ordering unique testing required for the patient's evaluation and care. I reviewed symptoms, imaging findings, laboratory results, physical findings, and treatment to date. I have answered patient's questions, and patient statedsatisfaction regarding the treatment plan and recommendations. Total time 62 minutes with over 50% spent in counseling and/or coordinating care. Return in about 1 week (around 09/29/2025) for elevated sed, C-RP. documented in this encounter Miscellaneous Notes * Patient Instructions - Coral Tomlin MD - 09/22/2025 3:00 PM EDT - blood work - xray bilateral knees - RTC in 7 days documented in this encounter Plan of Treatment Upcoming Encounters Date Type Department Care Team (Late st Contact Info) Description 11/16/2025 9:45 AM EST Appointment [facility] [address] [place] [address] Coral Tomlin MD [address] [facility] [address] 11/22/2025 9:40 AM EST Office Visit [facility] [address] [facility] [address] Coral Tomlin MD [address] [facility] [place] [address] Scheduled Orders Name Type Priority Associated Diagnoses Orde r Schedule QUANTIFERON(R)-TB GOLD-QUEST Lab Routine Sedimentation rate elevation Elevated C-reactive protein Other fatigue S/P total knee arthroplasty, right Osteoarthritis of left knee, unspecified osteoarthritis type Acute arthritis 1 Occurrences starting 09/22/2025 until 09/22/2026 IRON, TIBC, AND FERRITIN PANEL-QUEST Lab Routine Other fatigue Acute arthritis 1 Occurrences starting 09/22/2025 until 09/22/2026 documented as of this encounter Procedures Procedure Name Priority Date/Time Associated Diagnosis Comments MYOSITIS SPECIFIC 11 ANTIBODY PANEL-QUEST Routine 09/22/2025 3:32 PM EDT Sedimentation rate elevation Elevated C-reactive protein Other fatigue HEMA SCR,IFA W/REFL TITER/ PATTERN/MPX AB CASCADE-QUEST Routine 09/22/2025 3:32 PM EDT Sedimentation rate elevation Elevated C-reactive protein Other fatigue S/P total knee arthroplasty, right Osteoarthritis of left knee, unspecified osteoarthritis type Acute arthritis SEDIMENTATION RATE AUTOMATED-QUEST Routine 09/22/2025 3:32 PM EDT Sedimentation rate elevation Elevated C-reactive protein Other fatigue S/P total knee arthroplasty, right Osteoarthritis of left knee, unspecified osteoarthritis type Acute arthritis RHEUMATOID FACTOR QUANTITATIVE-QUEST Routine 09/22/2025 3:32 PM EDT Sedimentation rate elevation Elevated C-reactive protein Other fatigue S/P total knee arthroplasty, right Osteoarthritis of left knee, unspecified osteoarthritis type Acute arthritis LACTATE DEHYDROGENASE-QUEST Routine 09/22/2025 3:32 PM EDT Other fatigue Acute arthritis IRON LEVEL AND TIBC-QUEST Routine 09/22/2025 3:32 PM EDT FERRITIN-QUEST Routine 09/22/2025 3:32 PM EDT CYCLIC CITULLINATED PEPTIDE (CCP) AB (IGG)-QUEST Routine 09/22/2025 3:32 PM EDT Sedimentation rate elevation Elevated C-reactive protein Other fatigue S/P total knee arthroplasty, right Osteoarthritis of left knee, unspecified osteoarthritis type Acute arthritis CREATINE KINASE-QUEST Routine 09/22/2025 3:32 PM EDT Sedimentation rate elevation Elevated C-reactive protein Other fatigue S/P total knee arthroplasty, right Osteoarthritis of left knee, unspecified osteoarthritis type Acute arthritis C REACTIVE PROTEIN-QUEST Routine 09/22/2025 3:32 PM EDT Sedimentation rate elevation Elevated C-reactive protein Other fatigue S/P total knee arthroplasty, right Osteoarthritis of left knee, unspecified osteoarthritis type Acute arthritis HLA-B27 ANTIGEN-QUEST Routine 09/22/2025 3:32 PM EDT Sedimentation rate elevation Elevated C-reactive protein Other fatigue S/P total knee arthroplasty, right Osteoarthritis of left knee, unspecified osteoarthritis type Acute arthritis QUANTIFERON(R)-TB GOLD PLUS, 1-QUEST Routine 09/22/2025 3:32 PM EDT documented in this encounter Results * QUANTIFERON(R)-TB GOLD PLUS, 1-QUEST (09/22/2025 3:32 PM EDT) Pathologist [facility] QUANTIFERON(R)-T B GOLD PLUS, 1 TUBE NEGATIVE NEGATIVE [facility] Comment: Negative test result. M. tuberculosis complex infection unlikely. NIL 0.05 IU/mL [facility] Mitogen 7.87 IU/mL [facility] TB1-NIL 0.00 IU/mL [facility] TB2-NIL 0.00 IU/mL [facility] [place] Comment: The Nil tube value reflects the background interferon gamma immune response of the patient's blood sample. This value has been subtracted from the patient's displayed TB and Mitogen results. Lower than expected results with the Mitogen tube prevent false-negative Quantiferon readings by detecting a patient with a potential immune suppressive condition and/or suboptimal pre-analytical specimen handling. The TB1 Antigen tube is coated with the M. tuberculosis-specific antigens designed to elicit responses from TB antigen primed CD4+ helper T-lymphocytes. The TB2 Antigen tube is coated with the M. tuberculosis-specific antigens designed to elicit responses from TB antigen primed CD4+ helper and CD8+ cytotoxic T-lymphocytes. For additional information, please refer to https://education.[employer]/faq/EKD240 (This link is being provided for informational/ educational purposes only.) 09/22/2025 3:32 PM EDT 09/22/2025 3:33 PM EDT Coral Tomlin MD [facility] ORDERABLES Maris l Result Performing Organization Address [facility] Co de Phone Number [facility] [address] [place] [address] * FERRITIN-QUEST (09/22/2025 3:32 PM EDT) Ferritin 52 16 - 232 ng/mL [facility] 09/22/2025 3:32 PM EDT 09/22/2025 3:33 PM EDT Coral Tomlin MD [facility]CHEMISTRY ORDERABLES Final Result Performing Organization Address [facility] Co de Phone Number [facility] [address] [place] [address] * (ABNORMAL) IRON LEVEL AND TIBC-QUEST (09/22/2025 3:32 PM EDT) Iron 47 45 - 160 mcg/dL [facility] TIBC 398 250 - 450 mcg/dL (calc) [facility] %Saturation 12(L) 16 - 45 % (calc) [facility] 09/22/2025 3:32 PM EDT 09/22/2025 3:33 PM EDT Coral Tomlin MD [facility] ORDERABLES Final Result [facility] [address] [place] [address] * LACTATE DEHYDROGENASE-QUEST (09/22/2025 3:32 PM EDT) LD 179 120 - 250 U/L [facility] 09/22/2025 3:32 PM EDT 09/22/2025 3:33 PM EDT Coral Tomlin MD [facility]MISTRY ORDERABLES Final Result Performing Organization Address [facility] Co de Phone Number [facility] [address] [place] [address] * MYOSITIS SPECIFIC 11 ANTIBODY PANEL-QUEST (09/22/2025 3:32 PM EDT) ZENAIDA-1 Ab <11 <11 SI [facility], PL-7 Ab <11 <11 SI [facility], PL-12 Ab <11 <11 SI [facility], EJ Ab <11 <11 SI [facility], OJ Ab <11 <11 SI [facility], SRP Ab <11 <11 SI [facility], Mi-2 Alpha Ab <11 <11 SI [facility], Mi-2 Beta Ab <11 <11 SI [facility], MDA5 Ab <11 <11 SI [facility], TIF1 Gamma Ab <11 <11 SI [facility], NXP-2 Ab <11 <11 SI [facility], Comment: Myositis-specific autoantibodies (MSAs) are highly selective, generally mutually exclusive, and are associated with a particular clinical phenotype within the myositis spectrum. Anti-synthetase syndrome is associated with MSAs to cytoplasmic enzymes and tRNAs involved with the synthesis of proteins. Target antigens include Zenaida-1, PL-7, PL-12, EJ, and OJ. Clinically, anti-synthetase syndrome is primarily characterized by myositis and lung inflammation. Dermatomyositis is associated with MSAs to SRP, Mi-2A, Mi-2B, and clinically this disease is characterized by myositis in association with a rash. Additionally, MSAs to MDA5 ([id number]) have been identified in patients with clinically amyopathic dermatomyositis and rapidly progressive lung disease. MSAs to TIF1-y and NXP-2, collectively, are seen in >40% of children with dermatomyositis and appear to identify those with more severe disease. Finally, TIF1-y Ab has been reported in adults with dermatomyositis and is associated with malignancy, but not in children. SRP Ab has also been associated with necrotizing myopathy, a disease with unique histological features and an aggressive clinical course. This test was developed and its analytical performance characteristics have been determined by [employer]. It has not been cleared or approved by the FDA. This assay has been validated pursuant to the CLIA regulations and is used for clinical purposes. 09/22/2025 3:32 PM EDT 09/22/2025 3:33 PM EDT us Coral Tomlin MD [facility] ORDERABLES Maris sotelo Result [facility], [address] [place] [address] * HEMA SCR,IFA W/REFL TITER/ PATTERN/MPX AB CASCADE-QUEST (09/22/2025 3:32 PM EDT) HEMA Screen NEGATIVE NEGATIVE [facility] Comment: HEMA IFA is a first line screen for detecting the presence of up to approximately 150 autoantibodies in various autoimmune diseases. A negative HEMA IFA result suggests an HEMA-associated autoimmune disease is not present at this time, and does not reflex further. If there is high clinical suspicion for Sjogren's syndrome, testing for anti-SS-A/Ro antibody should be considered. Anti-Zenaida-1 antibody should be considered for clinically suspected inflammatory myopathies. AC-0: Negative International Consensus on HEMA Patterns (https://doi.org/10.1515/crcz-3631-4746) For additional information, please refer to http://education.[employer]/faq/FFS916 (This link is being provided for informational/ educational purposes only.) 09/22/2025 3:32 PM EDT 09/22/2025 3:33 PM EDT Coral Tomlin MD [facility] ORDERABLES Maris l Result [facility] [address] [place] [address] * CREATINE KINASE-QUEST (09/22/2025 3:32 PM EDT) Pathologist [facility] CK 111 21 - 240 U/L [facility] 09/22/2025 3:32 PM EDT 09/22/2025 3:33 PM EDT Coral Tomlin MD [facility]MI[facility]Y ORDERABLES Final Result [facility] [address] [place] [address] * HLA-B27 ANTIGEN-QUEST (09/22/2025 3:32 PM EDT) HLA-B27 NEGATIVE NEGATIVE [facility] 09/22/2025 3:32 PM EDT 09/22/2025 3:33 PM EDT Coral Tomlin MD [facility]CHEMISTRY ORDERABLES Final Result Performing Organization Address [facility]/ZIP Co de Phone Number [facility] [address] [place] [address] * CYCLIC CITULLINATED PEPTIDE (CCP) AB (IGG)-QUEST (09/22/2025 3:32 PM EDT) CCP IgG Antibodies <16 UNITS [facility] Comment: Reference Range Negative: <20 Weak Positive: 20-39 Moderate Positive: 40-59 Strong Positive: >59 09/22/2025 3:32 PM EDT 09/22/2025 3:33 PM EDT Coral Tomlin MD [facility]UN[facility] ORDERABLES Maris l Result Performing Organization Address [facility] de Phone Number [facility] [address] [place] [address] * RHEUMATOID FACTOR QUANTITATIVE-QUEST (09/22/2025 3:32 PM EDT) Rheumatoid Factor <10 <14 IU/mL [facility] 09/22/2025 3:32 PM EDT 09/22/2025 3:33 PM EDT Coral Tomlin MD [facility]UN[facility] ORDERABLES Maris l Result Performing Organization Address [facility] Co de Phone Number [facility] [address] [place] [address] * (ABNORMAL) C REACTIVE PROTEIN-QUEST (09/22/2025 3:32 PM EDT) CRP 15.5(H) <8.0 mg/L [facility] 09/22/2025 3:32 PM EDT 09/22/2025 3:33 PM EDT Coral Tomlin MD [facility] ORDERABLES Final Result [facility] [address] [place] [address] * (ABNORMAL) SEDIMENTATION RATE AUTOMATED-QUEST (09/22/2025 3:32 PM EDT) Sed Rate 51(H) < OR = 30 mm[facility]h [facility] 09/22/2025 3:32 PM EDT 09/22/2025 3:33 PM EDT Coral Tomlin MD [facility] ORDERABLES Maris l Result Performing Organization Address [facility] Co de Phone Number [facility] [address] [place] [address] documented in this encounter Visit Diagnoses Diagnosis Sedimentation rate elevation- Primary Elevated sedimentation rate Elevated C-reactive protein Elevated C-reactive protein (CRP) Other fatigue S/P total knee arthroplasty, right Osteoarthritis of left knee, unspecified osteoarthritis type Acute arthritis Arthropathy, unspecified, site unspecified documented in this encounter Discontinued Medications Medication Sig Discontinue Reason Start Date End Da te losartan (COZAAR) 25 mg Oral Tablet Take 25 mg by mouth daily. Cancelled by 08/01/2021 09/22/2025 aspirin 325 mg Oral Tablet, Delayed Release (E.C.) Take 1 Tab by mouth daily. Cancelled by 05/01/2021 09/22/2025 tiZANidine (ZANAFLEX) 2 mg Oral Tablet Take 1 Tab by mouth every 8 hours as needed. Cancelled by 05/01/2021 09/22/2025 tiZANidine (ZANAFLEX) 4 mg Oral TabletIndications:S/P total knee arthroplasty, right TAKE 1/2 TABLET BY MOUTH 3 TIMES DAILY. Cancelled by 07/10/2021 09/22/2025 traMADoL (ULTRAM) 50 mg Oral TabletIndications:Pain in right knee Take 1 Tablet by mouth daily as needed. for pain Cancelled by 01/22/2022 09/22/2025 oxyCODONE (ROXICODONE) 5 mg Oral TabletIndications:S/P total knee arthroplasty, right Take 1-2 Tabs by mouth every 8 hours as needed for Major Surgery/Trauma (G89.18). Cancelled by 05/11/2021 09/22/2025 documented as of this encounter Historical Medications * This list may reflect changes made after this encounter. MOUNJARO 5 mg/0.5 mL SubQ Pen Injector inject 0.5 ml subcutaneously weekly 09/01/2025 amLODIPine (NORVASC) 5 mg Oral Tablet Take 5 mg by mouth daily. losartan-hydroc hlorothiazide (HYZAAR) 50-12.5 mg Oral Tablet Take 1 Tablet by mouth 2 times daily. Cholecalciferol , Vitamin D3, 125 mcg (5,000 unit) Oral Tablet Take 5,000 Units by mouth daily. added in this encounter
--- OUTSIDE RECORDS SUMMARY | 2025-09-22 14:52 | XMS_ITS | Encounter Summary ---
Author Organization [place] [address] Care Team Providers Care Vice President Of Communications Name Role Phone Unavailable Primary Care Provider Unavailabl e Encounter Details Date Type Department Care Team (Latest Contact Info) Description 09/22/2025 3:52 PM EDT - 09/22/2025 11:59 PM EDT Hospital Encounter EDG D-WING XRAY [facility] [place] [id number] Sedimentation rate elevation; Elevated C-reactive protein; Other fatigue; S/P total knee arthroplasty, right; Osteoarthritis of left knee, unspecified osteoarthritis type; Acute arthritis Discharge Disposition: Home or Self Care Social History Tobacco Use Types Packs/Day Years [...] on file documented as of this encounter Medications at Time of Discharge acetaminophen (TYLENOL) 500 mg Oral Tablet Take 2 Tabs by mouth every 8 hours as needed for Pain. 60 Tab 05/01/2021 11:09 AM EDT 05/01/2021 amLODIPine (NORVASC) 5 mg Oral Tablet Take 5 mg by mouth daily. Cholecalciferol , Vitamin D3, 125 mcg (5,000 unit) Oral Tablet Take 5,000 Units by mouth daily. LEVOthyroxine (SYNTHROID) 50 mcg Oral Tablet Take 50 mcg by mouth. 08/02/2021 losartan-hydroc hlorothiazide (HYZAAR) 50-12.5 mg Oral Tablet Take 1 Tablet by mouth 2 times daily. MOUNJARO 5 mg/0.5 mL SubQ Pen Injector inject 0.5 ml subcutaneously weekly 09/01/2025 documented as of this encounter Discharge Disposition Disposition Code Departure Means Destination Home or Self Care documented in this encounter Plan of Treatment Upcoming Encounters Date Type Department Care Team (Late st Contact Info) Description 11/16/2025 9:45 AM EST Appointment [facility] [address] [place] [address] Coral Tomlin MD [address] [place] [address] 11/22/2025 9:40 AM EST Office Visit [facility] [address] [place] [address] Coral Tomlin MD [address] [place] [address] documented as of this encounter Procedures Procedure Name Priority Date/Time Associated Diagnosis Comments XR KNEE BILATERAL AP LATERAL AND AXIAL Routine 09/22/2025 4:37 PM EDT Sedimentation rate elevation Elevated C-reactive protein Other fatigue S/P total knee arthroplasty, right Osteoarthritis of left knee, unspecified osteoarthritis type Acute arthritis documented in this encounter Results * XR KNEE BILATERAL AP LATERAL AND AXIAL (09/22/2025 4:37 PM EDT) Anatomical Region Laterality Modality Knee Radiographic Janae ging 09/22/2025 4:37 PM EDT Impressions 09/22/2025 7:25 PM EDT No acute findings. Prior total right knee arthroplasty. Minimal degenerative change, left knee. - Note: Radiology results need to be interpreted within a comprehensive clinical context. If you have questions about the radiology report, please contact the office of the ordering clinician. Narrative 09/22/2025 7:25 PM EDT XR KNEE BILATERAL AP LATERAL AND AXIAL, 09/22/2025 4:37 PM CLINICAL HISTORY: R70.0-Elevated erythrocyte sedimentation yoer-BGW-41-CM R79.82-Elevated C-reactive protein (CRP)-ICD-10-CM R53.83-Other cbzbiyt-QQS-82-CM Z96.651-Presence of right artificial knee bjaoz-HZB-23-CM M17.12-Unilateral primary osteoarthritis, left gygw-CPY-93-CM M19.90-Unspecified osteoarthritis, unspecified aoho-JRI-92-CM COMPARISON: Prior comparison right knee exam, 05/01/2021. PROCEDURE COMMENTS: Bilateral imaging per the ordered protocol, 6 views. FINDINGS: Right: Prior total knee arthroplasty. Satisfactory alignment of the femoral/tibial components. Intact patella. No visualized joint effusion. Left: Minimal tricompartmental degenerative changes. Intact patella. No visualized joint effusion. If there is clinical concern of instability or internal derangement, consider follow-up MR imaging. Procedure Note Santos Aguayo DO - 09/22/2025 XR KNEE BILATERAL AP LATERAL AND AXIAL, 09/22/2025 4:37 PM CLINICAL HISTORY: R70.0-Elevated erythrocyte ooczpqozbjlfhjyyj-QCL-77-CM R79.82-Elevated C-reactive protein (CRP)-ICD-10-CM R53.83-Other lbiegal-HWL-96-CM Z96.651-Presence of right artificial knee skrta-CTI-63-CM M17.12-Unilateral primary osteoarthritis, left oupr-OYN-96-CM M19.90-Unspecified osteoarthritis, unspecified yyip-RRM-79-CM COMPARISON: Prior comparison right knee exam, 05/01/2021. PROCEDURE COMMENTS: Bilateral imaging per the ordered protocol, 6 views. FINDINGS: Right: Prior total knee arthroplasty. Satisfactory alignment of the femoral/tibial components. Intact patella. No visualized joint effusion. Left: Minimal tricompartmental degenerative changes. Intact patella. No visualized joint effusion. If there is clinical concern of instability or internal derangement,consider follow-up MR imaging. IMPRESSION: No acute findings. Prior total right knee arthroplasty. Minimal degenerative change, left knee. - Note: Radiology results need to be interpreted within a comprehensiveclinical context. If you have questions about the radiology report, please contactthe office of the ordering clinician. Coral Tomlin MD IMG DIAGNOSTIC IMAGING ORDERABLE S Final Result documented in this encounter Visit Diagnoses Diagnosis Sedimentation rate elevation Elevated sedimentation rate Elevated C-reactive protein Elevated C-reactive protein (CRP) Other fatigue S/P total knee arthroplasty, right Osteoarthritis of left knee, unspecified osteoarthritis type Acute arthritis Arthropathy, unspecified, site unspecified documented in this encounter
--- OUTSIDE RECORDS SUMMARY | 2025-09-29 16:00 | XMS_ITS | Encounter Summary ---
Author Organization [facility] Address [address] [place] [address] Care Team Providers Care Soil Checker Name Role Phone Unavailable Primary Care Provider Unavailabl e Reason for Referral * Consultation (Routine) - Pending Review Specialty Diagnoses / Procedures Referred By Aris t Referred To Contact Sleep Center Diagnoses Snoring Other fatigue Coral Tomlin MD [address] [place] [address] Phone: tel: fax: Alex Ling MD [address] [place] [phone] Phone: tel: fax: Referral ID Status Reason Start Date Expiration Date V isits Requested Visits Authorized [id number] Pending Review 09/29/2025 09/29/2026 1 1 Question Answer What test needs to be performed? Appropriate testing as determined by sleep specialist/sleep medicine protocols * MRI/CAT Scan (Routine) - Authorized Specialty Diagnoses / Procedures Referred By Contac t Referred To Contact Radiology Diagnoses Swelling of left hand Elevated C-reactive protein Sedimentation rate elevation Procedures MRI HAND LEFT W CONTRAST Coral Tomlin MD [address] [place] [address] Phone: tel: fax: Referral ID Status Reason Start Date Expiration Date V isits Requested Visits Authorized [id number] Authorized 09/29/2025 09/29/2026 1 1 Reason for Visit * Reason Comments Abnormal Lab Sedimentation rate e levation Encounter Details Date Type Department Care Team (Latest Contact Info) Description 09/29/2025 4:00 PM EST Office Visit [facility] [address] [place] [address] Coral Tomlin MD [address] [facility] [place] [address] Swelling of left hand (Primary Dx); Primary osteoarthritis involving multiple joints; shelter current use of systemic steroids; Snoring; Other fatigue; Elevated C-reactive protein; Sedimentation rate elevation; S/P total knee arthroplasty, right; Osteoarthritis of left knee, unspecified osteoarthritis type; Class 3 severe obesity without serious comorbidity with body mass index (BMI) of 45.0 to 49.9 in adult, unspecified obesity type (HCC) Social History Tobacco Use Types Packs/Day Years [...] Sign Reading Time Taken Comments Blood Pressure 128/84 09/29/2025 3:49 PM EST Pulse - - Temperature 36.7 C (98.1 F) 09/29/2025 3:49 PM EST Respiratory Rate - - Oxygen Saturation - - Inhaled Oxygen Concentration - - Weight 135.5 kg (298 lb 12.8 oz) 09/29/2025 3:49 PM EST Height 167.6 cm (5' 6 ) 09/29/2025 3:49 PM EST Body Mass Index 48.23 09/29/2025 3:49 PM EST documented in this encounter Ordered Prescriptions Prescription Sig Dispense Quantity Refills Last Filled Start Date End Date diclofenac (VOLTAREN) 75 mg Oral Tablet, Delayed Release (E.C.) Take 1 Tablet by mouth 2 times daily as needed for Pain. 60 Tablet 2 09/29/2025 documented in this encounter Progress Notes * Coral Tomlin MD - 09/29/2025 4:00 PM EST Images from the original note were not included. Subjective Subjective: Patient ID: Cristina Awan is a 49 y.o. female. Chief Complaint Patient presents with Abnormal Lab Sedimentation rate elevation HPI: Cristina Awan is a 49 y.o.female who presents for follow up visit for polyarthralgia and elevated inflammatory markers: Events since last visit: - she c/o stiffness in bilateral hands - she snores , wakes up feeling tired - xray bilateral knees 09/22/25-. Prior total right knee arthroplasty. Minimal degenerative change, left knee. reviewed labs done on 09/22/25 - sed 51, C-RP 15.5 - normal iron, TIBC, % saturation is low - neg RF, CCP, HLA-B27 - normal CK, LDH, ferritin - TB quant negative- 09/22/25 - negative HEMA, myositis panel The pain / function / disease activity [...] Outpatient Medications Marked as Taking for the 09/29/25 encounter (Office Visit) with Coral Tomlin MD [...] ml subcutaneously weekly Objective: Vital Signs: BP 128/84 (BP Location: Left arm, Patient Position: Sitting) Temp 98.1 ??F (36.7 ??C) (Forehead) Ht 5' 6 (1.676 m) Wt 298 lb 12.8 oz (135.5 kg) LMP 01/23/2021 BMI 48.23 kg/m??Body mass index is 48.23 kg/m??. Physical Exam CONST: well developed, well nourished, no apparent distress EYES: pupils equal/ round/ sclera white, conjunctiva pink and moist ENT: oropharynx clear without exudates, mucus membranes moist NECK: supple without lymphadenopathy, no thyromegaly, no masses RESP: clear to auscultation bilaterally without wheezes/rhonchi/rales CV: regular rate and rhythm SKIN: no rash, no indurations, nodules, or tightening. MSK: mild fullness left 4 MCP ++ Assessment and Plan: Diagnoses and all orders for this visit: Swelling of left hand Elevated C-reactive protein Sedimentation rate elevation - XR HAND LEFT PA LATERAL AND OBLIQUE; Future - MRI HAND LEFT W CONTRAST; Future - sed 51, C-RP 15.5, neg RF, CCP, HLA-B27, synovitis left hand - differentials: seronegative RA - obese body habitus is limiting physical exam, would recommend MRI for further evaluation for synovitis - Plan: xray left hand,MRI left hand to look for synovitis Primary osteoarthritis involving multiple joints - methylPREDNISolone acetate (DEPO-Medrol) injection 80 mg - methylPREDNISolone acetate (DEPO-Medrol) injection 40 mg - Plan: IM depomedrol 120 mg, stop motrin, recommend diclofenac 75 mg twice a day as needed 120mg methylprednisolone IM given without complication. The risks of methylprednisolone were reviewed by me with the patient, including (but not limited to) weight gain, osteoporosis acceleration, bone fractures, a-vascular necrosis, elevated blood sugars, and cataract acceleration. 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 Risks including but not limited to cardiovascular effects (hypertension, edema), electrolyte disturbances, arrhythmias (bradycardia, atrial fibrillation), HEATING AND VENTILATING WORKER and psychiatric behavioral reactions (apathy, irritability, psychosis), Cushingnoid appearance (clark facies, buffalo hump), GI (weight gain, ulcers), hyperglycemia, avascular necrosis, adrenal insufficiency, osteoporosis and/or infections were discussed with the patient. - Patient understands that blood glucose (particularly if diabetic) and blood pressure should be monitored and if abnormal while on this therapy, should address immediately with primary care provider. - Patient understands that if on this therapy for prolonged period of time, it should not be abruptly stopped but rather tapered as per provider instructions. - Patient instructed to read educational material concerning medication. Snoring - AMB REFERRAL TO SLEEP STUDIES/MEDICINE - Plan: Sleep medicine referral Other fatigue - AMB REFERRAL TO SLEEP STUDIES/MEDICINE S/P total knee arthroplasty, right Osteoarthritis of left knee, unspecified osteoarthritis type Class 3 severe obesity without serious comorbidity with body mass index (BMI) of 45.0 to 49.9 in adult, unspecified obesity type (HCC) (Chronic) Other orders - diclofenac (VOLTAREN) 75 mg Oral Tablet, Delayed Release (E.C.); Take 1 Tablet by mouth 2 times daily as needed for Pain. Dispense: 60 Tablet; Refill: 2 Instructions: - IM depomedrol 120 mg- 09/29/25 - xray left hand, MRI left hand with IV contrast ( call central scheduling at ) - stop motrin, recommend diclofenac 75 mg twice a day as needed - Sleep medicine referral - RTC in 6 weeks This is a moderate complexity frvddpi-vwpcnqii-tikbkl visit based on reviewing outside records, reviewing outside results, obtaining history and physical examination, and ordering unique testing required for the patient's evaluation and care. I reviewed symptoms, imaging findings, laboratory results, physical findings, and treatment to date. I have answered patient's questions, and patient statedsatisfaction regarding the treatment plan and recommendations. Total time 35 minutes with over 50% spent in counseling and/or coordinating care. Return in about 6 weeks (around 11/10/2025) for polhyarthralgia. * Jenn Fitzgerald MA - 09/29/2025 4:00 PM EST Depo Medrol injection 120 mg IM in Right upper gluteus muscle. Pt tolerated well. documented in this encounter Miscellaneous Notes * Patient Instructions - Coral Tomlin MD - 09/29/2025 4:00 PM EST - IM depomedrol 120 mg- 09/29/25 - xray left hand, MRI left hand with IV contrast ( call central scheduling at ) - stop motrin, recommend diclofenac 75 mg twice a day as needed - Sleep medicine referral - RTC in 6 weeks documented in this encounter Plan of Treatment Upcoming Encounters Date Type Department Care Team (Late st Contact Info) Description 11/16/2025 9:45 AM EST Appointment [facility] [address] [place] [address] Coral Tomlin MD [address] [place] [address] 11/22/2025 9:40 AM EST Office Visit [facility] [address] [place] [address] Coral Tomlin MD [address] [place] [address] Scheduled Orders Name Type Priority Associated Diagnoses Orde r Schedule MRI HAND LEFT W CONTRAST Imaging Routine Swelling of left hand Elevated C-reactive protein Sedimentation rate elevation 1 Occurrences starting 09/29/2025 until 09/29/2026 Scheduled Referrals Name Type Priority Associated Diagnoses Orde r Schedule AMB REFERRAL TO SLEEP STUDIES/MEDICINE Outpatient Referral Routine Snoring Other fatigue Ordered: 09/29/2025 documented as of this encounter Results * XR HAND LEFT PA LATERAL AND OBLIQUE (09/29/2025 4:30 PM EST) Anatomical Region Laterality Modality Hand Radiographic Janae ging 09/29/2025 4:30 PM EST Impressions 09/29/2025 4:46 PM EST Unremarkable left hand series. - Note: Radiology results need to be interpreted within a comprehensive clinical context. If you have questions about the radiology report, please contact the office of the ordering clinician. Narrative 09/29/2025 4:46 PM EST XR HAND LEFT PA LATERAL AND OBLIQUE, 09/29/2025 4:30 PM CLINICAL HISTORY: M79.89-Other specified soft tissue vjnoonkfp-VCS-94-CM COMPARISON: None. PROCEDURE COMMENTS: XR HAND LEFT PA LATERAL AND OBLIQUE FINDINGS: No acute fracture or traumatic malalignment. Joint spaces overall well-maintained for age. No periostitis. Procedure Note Eber Phillips MD - 09/29/2025 XR HAND LEFT PA LATERAL AND OBLIQUE, 09/29/2025 4:30 PM CLINICAL HISTORY: M79.89-Other specified soft tukoqfcvwkfaekg-HNX-44-CM COMPARISON: None. PROCEDURE COMMENTS: XR HAND LEFT PA LATERAL AND OBLIQUE FINDINGS: No acute fracture or traumatic malalignment. Joint spaces overall well-maintained for age. No periostitis. IMPRESSION: Unremarkable left hand series. - Note: Radiology results need to be interpreted within a comprehensiveclinical context. If you have questions about the radiology report, please contactthe office of the ordering clinician. Coral Tomlin MD IMG DIAGNOSTIC IMAGING ORDERABLE S Final Result documented in this encounter Visit Diagnoses Diagnosis Swelling of left hand- Primary Primary osteoarthritis involving multiple joints shelter current use of systemic steroids Encounter for long-term (current) use of steroids Snoring Other dyspnea and respiratory abnormality Other fatigue Elevated C-reactive protein Elevated C-reactive protein (CRP) Sedimentation rate elevation Elevated sedimentation rate S/P total knee arthroplasty, right Osteoarthritis of left knee, unspecified osteoarthritis type Class 3 severe obesity without serious comorbidity with body mass index (BMI) of 45.0 to 49.9 in adult, unspecified obesity type (HCC) Swelling of left hand documented in this encounter Administered Medications Inactive Administered Medications - up to 1 most recent administrations Medication Order MAR Action Action Date Dose Rate Site methylPREDNISolone acetate (DEPO-Medrol) injection 40 mg 40 mg, Intramuscular, ONCE, 1 dose, On Sat09/29/25 at 1615, Dx: 1. Primary osteoarthritis involving multiple joints 2. intermediate accountant current use of systemic steroidsIndications:Primar y osteoarthritis involving multiple joints,intermediate accountant current use of systemic steroids Given 09/29/2025 4:12 PM EST 40 mg Right upper gluteus methylPREDNISolone acetate (DEPO-Medrol) injection 80 mg 80 mg, Intramuscular, ONCE, 1 dose, On Sat09/29/25 at 1615, Dx: 1. Primary osteoarthritis involving multiple joints 2. intermediate accountant current use of systemic steroidsIndications:Primar y osteoarthritis involving multiple joints,intermediate accountant current use of systemic steroids Given 09/29/2025 4:12 PM EST 80 mg Right upper gluteus documented in this encounter
--- OUTSIDE RECORDS SUMMARY | 2025-09-29 16:21 | XMS_ITS | Encounter Summary ---
Author Organization [place] [address] Care Team Providers Care Reporter Anchor Name Role Phone Unavailable Primary Care Provider Unavailabl e Encounter Details Date Type Department Care Team (Latest Contact Info) Description 09/29/2025 4:21 PM EST - 09/29/2025 11:59 PM EST Hospital Encounter EDG D-WING XRAY [facility] [place] [address] Swelling of left hand Discharge Disposition: Home or Self Care Social [...] Tablet Take 5,000 Units by mouth daily. diclofenac (VOLTAREN) 75 mg Oral Tablet, Delayed Release (E.C.) Take 1 Tablet by mouth 2 times daily as needed for Pain. 60 Tablet 2 09/29/2025 LEVOthyroxine (SYNTHROID) 50 mcg Oral Tablet Take [...] Info) Description 11/16/2025 9:[address] [facility] [address] [place] [address] Coral Tomlin MD [address] [place] [address] 11/22/2025 9:40 AM EST Office Visit [facility] [address] [place] [address] Coral Tomlin MD [address] [place] [address] documented as of this encounter Procedures Procedure Name Priority Date/Time Associated Diagnosis Comments XR HAND LEFT PA LATERAL AND OBLIQUE Routine 09/29/2025 4:30 PM EST Swelling of left hand documented in this encounter Results * XR HAND LEFT [...] PM CLINICAL HISTORY: M79.89-Other specified soft tissue rxgvxebyb-VZS-86-CM COMPARISON: None. PROCEDURE COMMENTS: XR HAND LEFT PA LATERAL AND OBLIQUE FINDINGS: No acute fracture or traumatic malalignment. Joint spaces overall well-maintained for age. No periostitis. Procedure Note Eber Phillips MD - 09/29/2025 XR HAND LEFT PA LATERAL AND OBLIQUE, 09/29/2025 4:30 PM CLINICAL HISTORY: M79.89-Other specified soft tjqikytrbsyksff-EUE-97-CM COMPARISON: None. PROCEDURE COMMENTS: XR HAND LEFT PA LATERAL AND OBLIQUE FINDINGS: No acute fracture or traumatic malalignment. Joint spaces overall well-maintained for age. No periostitis. IMPRESSION: Unremarkable left hand series. - Note: Radiology results need to be interpreted within a comprehensiveclinical context. If you have questions about the radiology report, please contactthe office of the ordering clinician. Result [facility] Coral Tomlin MD IMG DIAGNOSTIC IMAGING ORDERABLE S Final Result documented in this encounter Visit Diagnoses Diagnosis Swelling of left hand documented in this encounter
--- OUTSIDE RECORDS SUMMARY | 2025-10-04 09:18 | XMS_ITS | Encounter Summary ---
Author Organization [place] [address] Care Team Providers Care Mail Messenger Name Role Phone Unavailable Primary Care Provider Unavailabl e Reason for Referral * Mammography (Routine) - Pending Review Specialty Diagnoses / Procedures Referred By Aris lisa Referred To Contact Radiology Diagnoses Encounter for screening mammogram for malignant neoplasm of breast Procedures MM MAMMO DIGITAL MALCOLM SCREEN Leslie Richardson APRN [address] [place] [address] Phone: tel: fax: Referral ID Status Reason Start Date Expiration Date V isits Requested Visits Authorized [id number] Pending Review 02/19/2024 02/18/2026 1 1 Reason for Visit * Mammography (Routine) - Pending Review Specialty Diagnoses / Procedures Referred By Aris lisa Referred To Contact Radiology Diagnoses Encounter for screening mammogram for malignant neoplasm of breast Procedures MM MAMMO DIGITAL MALCOLM SCREEN Leslie Richardson APRN [address] [facility] [address] [place] [address] Phone: tel: fax: Referral ID Status Reason Start Date Expiration Date V isits Requested Visits Authorized [id number] Pending Review 02/19/2024 02/18/2026 1 1 Encounter Details Date Type Department Care Team (Latest Contact Info) Description 10/04/2025 9:18 AM EST - 10/04/2025 11:59 PM EST Hospital Encounter [facility] [address] [place] [address] Pito Garaya Sharron, SPORTS PHYSICAL THERAPIST [address] [place] [address] [place] [address] Encounter for screening mammogram for malignant neoplasm of breast Discharge Disposition: Home or Self Care Social [...] Encounters Date Type Department Care Team (Late Contact Info) Description 11/16/2025 9:45 AM EST Appointment [facility] [address] [place] [address] [address] Coral Tomlin MD [address] [facility] [address] 11/22/2025 9:40 AM EST Office Visit [facility] [address] [place] [address] Coral Tomlin MD [address] [facility], [place] [id number] documented as of this encounter Procedures Procedure Name Priority Date/Time Associated Diagnosis Comments MM MAMMO DIGITAL MALCOLM SCREEN BILAT Routine 10/04/2025 9:26 AM EST Encounter for screening mammogram for malignant neoplasm of breast documented in this encounter Results * (ABNORMAL) MM MAMMO DIGITAL MALCOLM SCREEN BILAT (10/04/2025 9:26 AM EST) Anatomical Region Laterality Modality Breast Bilateral Mammography 10/04/2025 9:26 AM EST Impressions 10/05/2025 8:27 AM EST Incomplete: Need additional imaging evaluation ([id number]-4) RECOMMENDATION: Additional Imaging Breast Ultrasound Left . . COMMENTS: For patients with heterogeneously dense, or extremely dense breast tissue: At [facility], all mammography studies are performed using tomosynthesis. Tomosynthesis is considered a supplemental screening tool for dense breast tissue. Breast MRI and complete breast ultrasound are also considered supplemental tests for dense breast tissue. These may not be covered by insurance. DISCLAIMER *The patient was notified by MyChart or mail of the results for this examination. *The patient's information was entered into a reminder system with a target due date for the next breast imaging, in accordance with the [employer] and the Society of Breast Imaging recommendations. *Breast Imaging has a false negative rate of 15%. *Any patient with a palpable abnormality, unexplained by breast imaging, should be managed on a clinical basis by the attending physician. Narrative 10/05/2025 8:27 AM EST EXAM: MM MAMMO DIGITAL MALCOLM SCREEN BILAT EXAM DATE: 10/04/2025 9:26 AM INDICATION: Z12.31-Encounter for screening mammogram for malignant neoplasm of [id number]-CM COMPARISON STUDIES: Compared with prior studies the most recent being 01/14/2018. TISSUE DENSITY: There are scattered areas of fibroglandular density. FINDINGS: Unremarkable right breast exam. No suspicious calcifications. Indeterminate lower inner quadrant left breast subcentimeter nodule. Follow-up targeted ultrasound imaging requested. Procedure Note Santos Aguayo, DO - 10/05/2025 EXAM: MM MAMMO DIGITAL MALCOLM SCREEN BILAT EXAM DATE: 10/04/2025 9:26 AM INDICATION: Z12.31-Encounter for screening mammogram for malignantneoplasm of yatten-BZW-22-CM COMPARISON STUDIES: Compared with prior studies the most recent being 01/14/2018. TISSUE DENSITY: There are scattered areas of fibroglandular density. FINDINGS: Unremarkable right breast exam. No suspicious calcifications. Indeterminate lower inner quadrant left breast subcentimeter nodule.Follow-up targeted ultrasound imaging requested. IMPRESSION: Incomplete: Need additional imaging evaluation ([id number]-[id number]-6) RECOMMENDATION: Additional Imaging Breast Ultrasound Left . . COMMENTS: For patients with heterogeneously dense, or extremely dense breast tissue:At [facility], all mammography studies are performed usingtomosynthesis. Tomosynthesis is considered a supplemental screening tool for densebreast tissue. Breast MRI and complete breast ultrasound are also considered supplemental tests for dense breast tissue. These may not be covered by insurance. DISCLAIMER *The patient was notified by MyChart or mail of the results for this examination. *The patient's information was entered into a reminder system with atarget due date for the next breast imaging, in accordance with the [employer] and the Society of Breast Imaging recommendations. *Breast Imaging has a false negative rate of 15%. *Any patient with a palpable abnormality, unexplained by breast imaging,should be managed on a clinical basis by the attending physician. Leslie Garay SPORTS PHYSICAL THERAPIST IMG MAMMOGRAPHY ORDERABLES Fin al Result documented in this encounter Visit Diagnoses Diagnosis Encounter for screening mammogram for malignant neoplasm of breast Other screening mammogram documented in this encounter
--- OUTSIDE RECORDS SUMMARY | 2025-10-11 08:49 | XMS_ITS | Encounter Summary ---
Author Organization [place] [address] Care Team Providers Care Roofing Layer Name Role Phone Unavailable Primary Care Provider Unavailabl e Reason for Referral * Mammography (Routine) - Pending Review Specialty Diagnoses / Procedures Referred By Contac t Referred To Contact Radiology Diagnoses Mammogram abnormal Procedures MM US BREAST LIMITED LEFT Leslie Garay APRN [address] [place] [address] Phone: tel: fax: Referral ID Status Reason Start Date Expiration Date V isits Requested Visits Authorized [id number] Pending Review 10/07/2025 10/07/2027 1 1 Reason for Visit * Mammography (Routine) - Pending Review Specialty Diagnoses / Procedures Referred By Contac t Referred To Contact Radiology Diagnoses Mammogram abnormal Procedures MM US BREAST LIMITED LEFT Leslie Garay APRN [address] [place] [address] Phone: tel: fax: Referral ID Status Reason Start Date Expiration Date V isits Requested Visits Authorized [id number] Pending Review 10/07/2025 10/07/2027 1 1 Encounter Details Date Type Department Care Team (Latest Contact Info) Description 10/11/2025 8:49 AM EST - 10/11/2025 11:59 PM EST Hospital Encounter [facility] [address] [place] [address] JarrodLeslie pacheco Sharron, FINANCIAL ACCOUNTING ANALYST [address] [place] [address] Mammogram abnormal Discharge Disposition: Home or Self Care Social [...] Info) Description 11/16/2025 9:45 AM EST Appointment [facility] [address] [place] [address] [address] Coral Tomlin MD [address] [facility] [place] [address] 11/22/2025 9:40 AM EST Office Visit [facility] [address] [place] [address] Coral Tomlin MD [address] [facility] [place] [address] documented as of this encounter Procedures Procedure Name Priority Date/Time Associated Diagnosis Comments MM US BREAST LIMITED LEFT Routine 10/11/2025 9:13 AM EST Mammogram abnormal documented in this encounter Results * MM US BREAST LIMITED LEFT (10/11/2025 9:13 AM EST) Anatomical Region Laterality Modality Breast Left Ultrasound 10/11/2025 9:04 AM EST Impressions 10/11/2025 9:13 AM EST Probably Benign ([id number]-[id number]-5) ASSESSMENT TEXT: RECOMMENDATION: Breast Ultrasound in 6 Months Left COMMENTS: . Results were given and understood. Patient understands the necessity for follow-up in 6 months. DISCLAIMER *The patient was notified by MyChart or mail of the results for this examination. *The patient's information was entered into a reminder system with a target due date for the next breast imaging, in accordance with the [employer] and the Society of Breast Imaging recommendations. *Breast Imaging has a false negative rate of 15%. *Any patient with a palpable abnormality, unexplained by breast imaging, should be managed on a clinical basis by the attending physician. Narrative 10/11/2025 9:13 AM EST EXAM: MM US BREAST LIMITED LEFT EXAM DATE: 10/11/2025 9:04 AM INDICATION: R92.8-Other abnormal and inconclusive findings on diagnostic imaging of [id number]-[id number]-CM 49-year-old called back from recent screening mammogram for a indeterminate subcentimeter mass in the LEFT lower inner quadrant. Evaluate. COMPARISON STUDIES: Comparison with 10/04/2025 MM MAMMO DIGITAL MALCOLM SCREEN BILAT at [facility] and MM MOBILE MAMMO DIGITAL SCREEN W CAD ZACK 01/14/2018. FINDINGS: Targeted ultrasound evaluation was performed in the region of the mammographic finding, the LEFT 7:00 to 8:00 breast. Corresponding to the mammographic finding in the 8:00 position of the LEFT breast 5 cm from the nipple is an oval parallel circumscribed avascular mixed echogenicity mass, predominantly anechoic and hypoechoic. Sonographic features are suggestive of a complicated cyst cluster. Thus, this lesion is amendable to short-term follow-up. Otherwise, normal fibroglandular breast tissue noted. No suspicious masses. No abnormal areas of shadowing. Ultrasound evaluation of the LEFT axilla is unremarkable. Procedure Note Ary Tsang MD - 10/11/2025 EXAM: MM US BREAST LIMITED LEFT EXAM DATE: 10/11/2025 9:04 AM INDICATION: R92.8-Other abnormal and inconclusive findings on diagnosticimaging of [id number]-YOL-43-CM 49-year-old called back from recent screeningmammogram for a indeterminate subcentimeter mass in the LEFT lower inner quadrant.Evaluate. COMPARISON STUDIES: Comparison with 10/04/2025 MM MAMMO DIGITAL TOMOSCREEN BILAT at [facility] and MM MOBILE MAMMO DIGITAL SCREEN W CAD ZACK 01/14/2018. FINDINGS: Targeted ultrasound evaluation was performed in the region ofthe mammographic finding, the LEFT 7:00 to 8:00 breast. Corresponding to the mammographic finding in the 8:00 position of theLEFT breast 5 cm from the nipple is an oval parallel circumscribed avascularmixed echogenicity mass, predominantly anechoic and hypoechoic. Sonographicfeatures are suggestive of a complicated cyst cluster. Thus, this lesion isamendable to short-term follow-up. Otherwise, normal fibroglandular breast tissuenoted. No suspicious masses. No abnormal areas of shadowing. Ultrasound evaluation of the LEFT axilla is unremarkable. IMPRESSION: Probably Benign ([id number]-[id number]-4) ASSESSMENT TEXT: RECOMMENDATION: Breast Ultrasound in 6 Months Left COMMENTS: . Results were given and understood. Patient understands thenecessity for follow-up in 6 months. DISCLAIMER *The patient was notified by MyChart or mail of the results for this examination. *The patient's information was entered into a reminder system with atarget due date for the next breast imaging, in accordance with the [employer] and the Society of Breast Imaging recommendations. *Breast Imaging has a false negative rate of 15%. *Any patient with a palpable abnormality, unexplained by breast imaging,should be managed on a clinical basis by the attending physician. Leslie Garay APRN IMG MAMMOGRAPHY ORDERABLES Fin al Result documented in this encounter Visit Diagnoses Diagnosis Mammogram abnormal Abnormal mammogram, unspecified documented in this encounter
[2025-11-10 16:43] LABS: Hemoglobin A1C 5.4 % (4.0-6.0)
[2025-11-10 17:14] LABS: Alanine Aminotransferase 29 U/L (12-78); Albumin Level 4.4 g/dl (3.5-5.0); Albumin/Globulin Ratio 1.3 (1.1-1.8); Alkaline Phosphatase 130 U/L (38-126); Anion Gap 12.0 mEq/L (5-15); Aspartate Amino Transferase 41 U/L (14-36); Bilirubin,Total 1.0 mg/dl (0.2-1.3); Blood Urea Nitrogen 14 mg/dl (7-17); Calcium 9.6 mg/dl (8.4-10.2); Carbon Dioxide 29 mmol/L (22.0-30.0); Chloride 101 mmol/L (98-107); Creatinine,Serum 0.70 mg/dl (0.52-1.04); Estimated Glomerular Filt Rate 88 ml/min (>60); GFR (African American) 106 ML/MIN (>60); Globulin 3.4 g/dL (1.3-3.2); Glucose 105 mg/dl (74-100); Potassium 4.0 mmoL/L (3.5-5.1); Sodium 138 mmol/L (136-145); Total Protein,Serum 7.8 g/dl (6.3-8.2)
--- OUTSIDE RECORDS SUMMARY | 2025-11-10 20:44 | XMS_ITS | Encounter Summary ---
Author Organization [facility] Address [address] [place] [address] Care Team Providers Care Platform Builder Name Role Phone Unavailable Primary Care Provider Unavailabl e Encounter Details Date Type Department Care Team (Latest Contact Info) Description 09/23/2025 Results Follow-Up [facility] [address] [place] [phone] Coral Tomlin MD [address] [place] [address] XR KNEE BILATERAL AP LATERAL AND AXIAL Social History Tobacco Use Types Packs/Day Years [...] on file documented as of this encounter Progress Notes * Coral Tomlin MD - 09/23/2025 1:10 PM EDT - xray bilateral knees 09/22/25-. Prior total right knee arthroplasty. Minimal degenerative change, left knee. documented in this encounter Plan of Treatment Upcoming Encounters Date Type Department Care Team (Late st Contact Info) Description 11/16/2025 9:[address] [facility] MRI [address] [place] [address] Coral Tomlin MD [address] [facility] [place] [address] 11/22/2025 9:40 AM EST Office Visit [facility] [address] [place] [address] Coral Tomlin MD [address] [place] [address] documented as of this encounter Visit Diagnoses Not on filedocumented in this encounter
--- OUTSIDE RECORDS SUMMARY | 2025-11-10 20:44 | XMS_ITS | Clinical Summary ---
Author Organization ARY DESTIN OD Address [address] [facility] [address] [place], [place] [address] Phone Care Team Providers Care Process Development Manager Name Role Phone Unavailable Primary Care Provider Unavailabl e Allergies No known active allergies Medications acetaminophen (TYLENOL) 500 mg Oral Tablet Take 2 Tabs by mouth every 8 hours as needed for Pain. 60 Tab 05/01/2021 11:09 AM EDT 1 Active Additional Information Patient not taking.Reason: Therapy Completed, Reported on 09/29/2025 LEVOthyroxine (SYNTHROID) 50 mcg Oral Tablet Take 50 mcg by mouth. 1 Active Cholecalcifero l, Vitamin D3, 125 mcg (5,000 unit) Oral Tablet Take 5,000 Units by mouth daily. Active losartan-hydro chlorothiazide (HYZAAR) 50-12.5 mg Oral Tablet Take 1 Tablet by mouth 2 times daily. Active amLODIPine (NORVASC) 5 mg Oral Tablet Take 5 mg by mouth daily. Active MOUNJARO 5 mg/0.5 mL SubQ Pen Injector inject 0.5 ml subcutaneously weekly 5 Active diclofenac (VOLTAREN) 75 mg Oral Tablet, Delayed Release (E.C.) Take 1 Tablet by mouth 2 times daily as needed for Pain. 60 Tablet 2 5 Active Active Problems Problem Noted Date Diagnosed Date S/P total knee arthroplasty, right 05/05/2021 Chronic pain of right knee 04/18/2021 Primary osteoarthritis of right knee 04/18/2021 Encounters Date Type Department Care Team Description 10/11/2025 8:49 AM EST - 10/11/2025 11:59 PM EST Hospital Encounter [place] [facility] [place] [address] Leslie Garay, SOLDERER FURNACE Mammogram abnormal Discharge Disposition: Home or Self Care 10/07/2025 Telephone [facility] Women's Wellness [facility] [place] [address] Samantha Abrams, Clerical Staff Abnormal Radiology 10/04/2025 9:18 AM EST - 10/04/2025 11:59 PM EST Hospital Encounter [facility] [address] [place] [address] Leslie Garay, SOLDERER FURNACE Encounter for screening mammogram for malignant neoplasm of breast Discharge Disposition: Home or Self Care 09/30/2025 Results Follow-Up [facility] [address] [place] [address] Coral Tomlin MD XR HAND LEFT PA LATERAL AND OBLIQUE 09/29/2025 4:21 PM EST - 09/29/2025 11:59 PM EST Hospital Encounter [facility] [place] [address] Swelling of left hand Discharge Disposition: Home or Self Care 09/29/2025 4:00 PM EST Office Visit [facility] [address] [place] [address] Coral Tomlin MD Swelling of left hand (Primary Dx); Primary osteoarthritis involving multiple joints; long-term current use of systemic steroids; Snoring; Other fatigue; Elevated C-reactive protein; Sedimentation rate elevation; S/P total knee arthroplasty, right; Osteoarthritis of left knee, unspecified osteoarthritis type; Class 3 severe obesity without serious comorbidity with body mass index (BMI) of 45.0 to 49.9 in adult, unspecified obesity type (HCC) 09/29/2025 Results Follow-Up [facility] [address] [place] [address] Coral Tomlin MD SEDIMENTATION RATE AUTOMATED-QUEST, C REACTIVE PROTEIN-QUEST, RHEUMATOID FACTOR QUANTITATIVE-QUEST, Additional followed-up results: 9 09/23/2025 Results Follow-Up [facility] [address] [place] [address] Coral Tomlin MD XR KNEE BILATERAL AP LATERAL AND AXIAL 09/22/2025 3:52 PM EDT - 09/22/2025 11:59 PM EDT Hospital Encounter [facility] [place] [address] Sedimentation rate elevation; Elevated C-reactive protein; Other fatigue; S/P total knee arthroplasty, right; Osteoarthritis of left knee, unspecified osteoarthritis type; Acute arthritis Discharge Disposition: Home or Self Care 09/22/2025 3:00 PM EDT Office Visit [facility] [address] [place] [address] Coral Tomlin MD Sedimentation rate elevation (Primary Dx); Elevated C-reactive protein; Other fatigue; S/P total knee arthroplasty, right; Osteoarthritis of left knee, unspecified osteoarthritis type; Acute arthritis from Last 3 Months Surgical History Surgery Date Site/Laterality Comments DENTAL SURGERY JOINT REPLACEMENT 05/01/2021 Right RIGHT KNEE TOTAL KNEE REPLACEMENT; Surgeon: Antolin Gant MD; Location: [facility]; Service: Orthopedics Medical devices from this surgery are in the Medical Devices section. Medical History Medical History Date Comments Arthritis Anemia during Hypertension Hypothyroidism Family History Medical History Relation Name Comments Arthritis Father Bartolome Gay Psoriatic and O steoarthritis Osteoarthritis Father Bartolome Gay Arthritis Maternal Grandmother Ashely Moore Diabetes Maternal Grandmother Ashely Moore Hypertension Maternal Grandmother Ashely Moore Osteoarthritis Maternal Grandmother Ashely Moore Coronary Art Dis Paternal Grandmother Elina Victor Hugo Anesth Problems Neg Hx Relation Name Status Comments Father Bartolome Gay Alive Maternal Grandmother Ashely Dahlcornelius Paternal Grandmother Elina Gay Social History Tobacco Use Types Packs/Day Years [...] file Not on file Not on file Obstetrics History Para Term AB IAB SAB Ectopic Multiple Livin g Live Births 1 Last Filed Vital Signs Vital Sign Reading Time Taken Comments Blood Pressure 128/84 09/29/2025 3:49 PM EST Pulse 78 05/01/2021 12:50 PM EDT Temperature 36.7 C (98.1 F) 09/29/2025 3:49 PM EST Respiratory Rate 18 05/01/2021 12:5 0 PM EDT Oxygen Saturation 100% 05/01/2021 12: 50 PM EDT Inhaled Oxygen Concentration - - Weight 135.5 kg (298 lb 12.8 oz) 09/29/2025 3:49 PM EST Height 167.6 cm (5' 6 ) 09/29/2025 3:49 PM EST Body Mass Index 48.23 09/29/2025 3:49 PM EST Plan of Treatment Upcoming Encounters Date Type Department Care Team (Late st Contact Info) Description 11/16/2025 9:45 AM EST Appointment [facility] [address] [place] [address] Coral Tomlin MD [address] [place] [address] 11/22/2025 9:40 AM EST Office Visit [facility] [address] [place] [address] Coral Tomlin MD [address] [place] [address] Health Maintenance Due Date Last Done Comments Annual Wellness Exam 1976 Hepatitis B Vaccine (1 of 3 - 19+ 3-dose series) 1992 Cervical Cancer Screening 1994 Pap Smear 1994 DTaP/TDaP/Td (1 - Tdap) 01/29/1997 01/28/1997 HPV/Pap Cotest 2003 Cologuard 2018 Colon Cancer Screening 2018 Colonoscopy 2018 FIT 2018 Sigmoidoscopy 2018 Virtual Colonography 2018 Pneumococcal Vaccine 50+ (1 of 1 - PCV) 2023 Zoster (1 of 2) 2023 COVID-19 Vaccine (4 - season) 2025 06/30/2022, 12/15/2021, 11/24/2021 Influenza Vaccine (#1) 2025 Breast Cancer Screening 10/04/2027 10/04/20, 01/14/2018, 10/22/2008, Additional history exists Meningococcal B Vaccine Aged Out No l onger eligible based on patient's age to complete this topic Medical Devices Implanted Type Area Turf Sales Person Device Identifier Shelf Expiration Date Model / Serial / Lot Patlr 29x9mm Triath Tritan Mtl Asym Kn - [id number] Implanted:Qty: 1 on 05/01/2021 by Antolin Gant MD at [facility] Right: Knee STARLA:ORTHOPEDI CS 10/16/2022 [id number] / / [id number] Comp Fem Sz3 Triath Rt Kn Cr Ncem Periapt Ctd Bead - [id number] Implanted:Qty: 1 on 05/01/2021 by Antolin Gant MD at [facility] Right: Knee STARLA:ORTHOPEDI CS 07/13/2025 [id number] / / [id number] Baseplate Tib Sz3 Total Stabilized Revisn Triath Tritan - [id number] Implanted:Qty: 1 on 05/01/2021 by Antolin Gant MD at [facility] Right: Knee STARLA:ORTHOPEDI CS 10/16/2025 [id number] / / [id number] Liner Tib Sz3 9mm Triath Art Condl Stabx3 - [id number] Implanted:Qty: 1 on 05/01/2021 by Antolin Gant MD at [facility] Right: Knee STARLA:ORTHOPEDI CS 07/25/2025 [id number] / / [id number] Procedures Procedure Name Priority Date/Time Associated Diagnosis Comments MM US BREAST LIMITED LEFT Routine 10/11/2025 9:13 AM EST Mammogram abnormal MM MAMMO DIGITAL MALCOLM SCREEN BILAT Routine 10/04/2025 9:26 AM EST Encounter for screening mammogram for malignant neoplasm of breast XR HAND LEFT PA LATERAL AND OBLIQUE Routine 09/29/2025 4:30 PM EST Swelling of left hand XR KNEE BILATERAL AP LATERAL AND AXIAL Routine 09/22/2025 4:37 PM EDT Sedimentation rate elevation Elevated C-reactive protein Other fatigue S/P total knee arthroplasty, right Osteoarthritis of left knee, unspecified osteoarthritis type Acute arthritis QUANTIFERON(R)-TB GOLD PLUS, 1-QUEST Routine 09/22/2025 3:32 PM EDT FERRITIN-QUEST Routine 09/22/2025 3:32 PM EDT IRON LEVEL AND TIBC-QUEST Routine 09/22/2025 3:32 PM EDT LACTATE DEHYDROGENASE-QUEST Routine 09/22/2025 3:32 PM EDT Other fatigue Acute arthritis MYOSITIS SPECIFIC 11 ANTIBODY PANEL-QUEST Routine 09/22/2025 [...] left knee, unspecified osteoarthritis type Acute arthritis CYCLIC CITULLINATED PEPTIDE (CCP) AB (IGG)-QUEST Routine [...] left knee, unspecified osteoarthritis type Acute arthritis from Last 3 Months Results * MM US BREAST LIMITED LEFT (10/11/2025 9:13 AM EST) Anatomical Region Laterality Modality Breast Left Ultrasound 10/11/2025 9:04 AM EST Impressions 10/11/2025 9:13 AM EST Probably Benign (LHC-Gagrdhwr-6) ASSESSMENT TEXT: RECOMMENDATION: Breast Ultrasound in 6 Months Left COMMENTS: . Results were given and understood. Patient understands the necessity for follow-up in 6 months. DISCLAIMER *The patient was notified by Tyrogenexhart or mail of the results for this examination. *The patient's information was entered into a reminder system with a target due date for the next breast imaging, in accordance with the [employer] and the Society of [...] and inconclusive findings on diagnostic imaging of qsdmgw-NPT-45-CM 49-year-old called back from recent screening mammogram for a indeterminate subcentimeter mass in the LEFT lower inner quadrant. Evaluate. COMPARISON STUDIES: Comparison with 10/04/2025 MM MAMMO DIGITAL MALCOLM SCREEN BILAT at [facility] and MM MOBILE MAMMO DIGITAL SCREEN [...] abnormal and inconclusive findings on diagnosticimaging of vgehwv-FDK-35-CM 49-year-old called back from recent screeningmammogram for a indeterminate subcentimeter mass in the LEFT lower inner quadrant.Evaluate. COMPARISON STUDIES: Comparison with 10/04/2025 MM MAMMO DIGITAL TOMOSCREEN BILAT at [facility] and MM MOBILE MAMMO DIGITAL SCREEN [...] LEFT axilla is unremarkable. IMPRESSION: Probably Benign (MNK-Myqxyhqh-9) ASSESSMENT TEXT: RECOMMENDATION: Breast Ultrasound in 6 Months Left COMMENTS: . Results were given and understood. Patient understands thenecessity for follow-up in 6 months. DISCLAIMER *The patient was notified by MyChart or mail of the results for this examination. *The patient's information was entered into a reminder system with atarget due date for the next breast imaging, in accordance with the [employer] and the Society of Breast Imaging recommendations. *Breast Imaging has a false negative rate of 15%. *Any patient with a palpable abnormality, unexplained by breast imaging,should be managed on a clinical basis by the attending physician. Leslie Garay APRN [facility] ORDERABLES Fin al Result * (ABNORMAL) MM MAMMO DIGITAL MALCOLM SCREEN BILAT (10/04/2025 9:26 AM EST) Anatomical Region Laterality Modality Breast Bilateral Mammography 10/04/2025 9:26 AM EST Impressions 10/05/2025 8:27 AM EST Incomplete: Need additional imaging evaluation (STG-Rdcqslch-9) RECOMMENDATION: Additional Imaging Breast Ultrasound Left . . COMMENTS: For patients with heterogeneously dense, or extremely dense breast tissue: At [facility], all mammography studies are performed using tomosynthesis. Tomosynthesis is considered a supplemental screening tool for dense breast tissue. Breast MRI and complete breast ultrasound are also considered supplemental tests for dense breast tissue. These may not be covered by insurance. DISCLAIMER *The patient was notified by Tyrogenexhart or mail of the results for this examination. *The patient's information was entered into a reminder system with a target due date for the next breast imaging, in accordance with the [employer] and the Society of [...] for screening mammogram for malignant neoplasm of kmhngu-BBD-68-CM COMPARISON STUDIES: Compared with prior studies the [...] Z12.31-Encounter for screening mammogram for malignantneoplasm of hxyufg-AXL-49-CM COMPARISON STUDIES: Compared with prior studies the most recent being 01/14/2018. TISSUE DENSITY: There are scattered areas of fibroglandular density. FINDINGS: Unremarkable right breast exam. No suspicious calcifications. Indeterminate lower inner quadrant left breast subcentimeter nodule.Follow-up targeted ultrasound imaging requested. IMPRESSION: Incomplete: Need additional imaging evaluation (MBA-Rycypoft-6) RECOMMENDATION: Additional Imaging Breast Ultrasound Left . . COMMENTS: For patients with heterogeneously dense, or extremely dense breast tissue:At [facility], all mammography studies are performed usingtomosynthesis. Tomosynthesis [...] next breast imaging, in accordance with the [employer] and the Society of Breast Imaging recommendations. *Breast Imaging has a false negative rate of 15%. *Any patient with a palpable abnormality, unexplained by breast imaging,should be managed on a clinical basis by the attending physician. us Leslie Garay SOLDERER FURNACE IMG MAMMOGRAPHY ORDERABLES Fin al Result * XR HAND LEFT PA LATERAL AND [...] PM CLINICAL HISTORY: M79.89-Other specified soft tissue pnbabskvz-UCX-72-CM COMPARISON: None. PROCEDURE COMMENTS: XR HAND LEFT PA LATERAL AND OBLIQUE FINDINGS: No acute fracture or traumatic malalignment. Joint spaces overall well-maintained for age. No periostitis. Procedure Note Eber Phillips MD - 09/29/2025 XR HAND LEFT PA LATERAL AND OBLIQUE, 09/29/2025 4:30 PM CLINICAL HISTORY: M79.89-Other specified soft mzfwuzdwsfnnfit-XIZ-52-CM COMPARISON: None. PROCEDURE COMMENTS: XR HAND LEFT [...] IMG DIAGNOSTIC IMAGING ORDERABLE S Final Result * XR KNEE BILATERAL AP LATERAL AND [...] 4:37 PM CLINICAL HISTORY: R70.0-Elevated erythrocyte sedimentation ztnv-VAB-06-CM R79.82-Elevated C-reactive protein (CRP)-ICD-10-CM R53.83-Other bxoswul-KKR-93-CM Z96.651-Presence of right artificial knee urrak-GCP-82-CM M17.12-Unilateral primary osteoarthritis, left hvpq-PRX-37-CM M19.90-Unspecified osteoarthritis, unspecified qxqc-XHH-69-CM COMPARISON: Prior comparison right knee exam, 05/01/2021. [...] 09/22/2025 4:37 PM CLINICAL HISTORY: R70.0-Elevated erythrocyte lfqgmpmedndtgyntu-DYG-82-CM R79.82-Elevated C-reactive protein (CRP)-ICD-10-CM R53.83-Other tvmadxy-CBH-20-CM Z96.651-Presence of right artificial knee rybhu-KTD-14-CM M17.12-Unilateral primary osteoarthritis, left ovoz-DBV-60-CM M19.90-Unspecified osteoarthritis, unspecified iviw-RHM-78-CM COMPARISON: Prior comparison right knee exam, 05/01/2021. [...] IMG DIAGNOSTIC IMAGING ORDERABLE S Final Result * MYOSITIS SPECIFIC 11 ANTIBODY PANEL-QUEST (09/22/2025 3:32 PM EDT) ZENAIDA-1 Ab <11 <11 SI [facility], PL-7 Ab <11 <11 SI [facility], PL-12 Ab <11 <11 SI [facility], EJ Ab <11 <11 SI [facility], OJ Ab <11 <11 SI [facility], SRP Ab <11 <11 SI [facility], Mi-2 Alpha Ab <11 <11 SI [facility], Mi-2 Beta Ab <11 <11 SI [facility], MDA5 Ab <11 <11 SI [facility], TIF1 Gamma Ab <11 <11 SI [facility], NXP-2 Ab <11 <11 SI [facility], Comment: Myositis-specific autoantibodies (MSAs) are highly [...] with a rash. Additionally, MSAs to MDA5 ([id number]) have been identified in patients with clinically [...] analytical performance characteristics have been determined by [employer]. It has not been cleared or approved by the FDA. This assay has been validated pursuant to the CLIA regulations and is used for clinical purposes. 09/22/2025 3:32 PM EDT 09/22/2025 3:33 PM EDT Coral Tomlin MD [facility] ORDERABLES Maris l Result Performing Organization Address [facility]/ZIP Co de Phone Number [facility], [address] [place] [address] * HEMA SCR,IFA W/[place] TITER/ PATTERN/MPX AB CASCADE-QUEST (09/22/2025 3:32 PM EDT) HEMA Screen NEGATIVE NEGATIVE [employer] Luigi Christiansen Comment: HEMA IFA is a [...] AC-0: Negative International Consensus on HEMA Patterns (https://doi.org/10.1515/iffv-6734-3078) For additional information, please refer to http://education.[employer]/faq/AVT727 (This link is being provided for informational/ educational purposes only.) 09/22/2025 3:32 PM EDT 09/22/2025 3:33 PM EDT Coral Tomlin MD [facility] ORDERABLES Maris l Result [facility] [address] [place] [address] * (ABNORMAL) SEDIMENTATION RATE AUTOMATED-QUEST (09/22/2025 3:32 PM EDT) Pathologist [facility] Sed Rate 51(H) < OR = 30 mm/h [facility] 09/22/2025 3:32 PM EDT 09/22/2025 3:33 PM EDT Coral Tomlin MD [facility]HEMAT[facility]Y ORDERABLES Maris l Result [facility] [address] [place] [address] * RHEUMATOID FACTOR QUANTITATIVE-QUEST (09/22/2025 3:32 PM EDT) Pathologist [facility] Rheumatoid Factor <10 <14 IU/mL [facility] [place] 09/22/2025 3:32 PM EDT 09/22/2025 3:33 PM EDT Coral Tomlin MD [facility] ORDERABLES Maris l Result Performing Organization Address [facility] Co de Phone Number [facility] [address] [place] [address] * LACTATE DEHYDROGENASE-QUEST (09/22/2025 3:32 PM EDT) Pathologist [facility] LD 179 120 - 250 U/L [facility] 09/22/2025 3:32 PM EDT 09/22/2025 3:33 PM EDT Coral Tomlin MD [facility]CHEMISTRY ORDERABLES Final Result Performing Organization Address City/[facility] Co de Phone Number [facility] [address] [place] [address] * (ABNORMAL) IRON LEVEL AND TIBC-QUEST (09/22/2025 3:32 PM EDT) Pathologist [facility] Iron 47 45 - 160 mcg/dL [facility] [place] TIBC 398 250 - 450 mcg/dL (calc) [facility] [place] %Saturation 12(L) 16 - 45 % (calc) [facility]Chris [facility] 09/22/2025 3:32 PM EDT 09/22/2025 3:33 PM EDT Coral Tomlin MD [facility]MI[facility] ORDERABLES Final Result [facility]Luigi [facility] [address] [place] [address] * FERRITIN-QUEST (09/22/2025 3:32 PM EDT) Ferritin 52 16 - 232 ng/mL [facility]alo [facility] 09/22/2025 3:32 PM EDT 09/22/2025 3:33 PM EDT Coral Tomlin MD [facility]MI[facility] ORDERABLES Final Result Performing Organization Address [facility]/ZIP Co de Phone Number [facility]Luigi Christiansen [address] [place] [address] * CYCLIC CITULLINATED PEPTIDE (CCP) AB (IGG)-QUEST (09/22/2025 3:32 PM EDT) CCP IgG Antibodies <16 UNITS [facility]Chris [facility]en Comment: Reference Range Negative: <20 Weak Positive: 20-39 Moderate Positive: 40-59 Strong Positive: >59 09/22/2025 3:32 PM EDT 09/22/2025 3:33 PM EDT Coral Tomlin MD [facility]UN[facility] ORDERABLES Maris l Result Performing Organization Address City/[facility]/ZIP Co de Phone Number [facility]Luigi Christiansen [address] [place] [address] * CREATINE KINASE-QUEST (09/22/2025 3:32 PM EDT) CK 111 21 - 240 U/L [facility] 09/22/2025 3:32 PM EDT 09/22/2025 3:33 PM EDT Coral Tomlin MD [facility] ORDERABLES Final Result [facility] [address] [place] [address] * (ABNORMAL) C REACTIVE PROTEIN-QUEST (09/22/2025 3:32 PM EDT) CRP 15.5(H) <8.0 mg/L [facility]chez d [place] 09/22/2025 3:32 PM EDT 09/22/2025 3:33 PM EDT Coral Tomlin MD [facility]MISTR[facility] ORDERABLES Final Result Performing Organization Address City/[facility]/ZIP Co de Phone Number [facility] [address] [place] [address] * HLA-B27 ANTIGEN-QUEST (09/22/2025 3:32 PM EDT) HLA-B27 NEGATIVE NEGATIVE [facility] 09/22/2025 3:32 PM EDT 09/22/2025 3:33 PM EDT Coral Tomlin MD [facility]MISTR[facility] ORDERABLES Final Result Performing Organization Address City/[facility] Co de Phone Number [facility] [address] [place] [address] * QUANTIFERON(R)-TB GOLD PLUS, 1-QUEST (09/22/2025 3:32 PM EDT) QUANTIFERON(R)-T B GOLD PLUS, 1 TUBE NEGATIVE NEGATIVE [facility] Comment: Negative test result. M. tuberculosis complex infection unlikely. NIL 0.05 IU/mL [facility] [place] Mitogen 7.87 IU/mL [facility] [place] TB1-NIL 0.00 IU/mL [facility] [place] TB2-NIL 0.00 IU/mL [facility]Dagmar Christiansen Comment: The Nil tube value reflects the [...] T-lymphocytes. For additional information, please refer to https://education.ePropertyData/faq/YZN410 (This link is being provided for informational/ educational purposes only.) 09/22/2025 3:32 PM EDT 09/22/2025 3:33 PM EDT Coral Tomlin MD [facility]UN[facility] ORDERABLES Maris l Result [facility]en [address] [place] [address] from Last [address] [place] [address] [place] [address] ANTHEM PPO ANTHEM PPO ANTHEM PPO
--- OUTSIDE RECORDS SUMMARY | 2025-11-10 20:44 | XMS_ITS | Encounter Summary ---
Author Organization [facility] Address [address] [place] [address] Care Team Providers Care Nut Sheller Machine Operator Name Role Phone Unavailable Primary Care Provider Unavailabl e Encounter Details Date Type Department Care Team (Latest Contact Info) Description 09/30/2025 Results Follow-Up [facility] [address] [place] [address] Coral Tomlin MD [address] [place] [address] XR HAND LEFT PA LATERAL AND OBLIQUE Social History Tobacco Use Types Packs/Day Years [...] Progress Notes * Coral Tomlin MD - 09/30/2025 8:33 AM EST - xray left hand 09/29/25- normal documented in this encounter Plan of Treatment Upcoming Encounters Date Type Department Care Team (Late st Contact Info) Description 11/16/2025 9:45 AM EST Appointment [facility] [place] [facility] [address] [place] [address] Coral Tomlin MD [address] [place] [address] 11/22/2025 9:40 AM EST Office Visit [facility] [address] [place] [address] Coral Tomlin MD [address] [place] [facility] [place] [address] documented as of this encounter Visit Diagnoses Not on filedocumented in this encounter
--- OUTSIDE RECORDS SUMMARY | 2025-11-10 20:44 | XMS_ITS | Encounter Summary ---
Author Organization [place] [address] Care Team Providers Care Spinning Frame Fixer Name Role Phone Unavailable Primary Care Provider Unavailabl e Reason for Visit * Reason Onset Date Comments Abnormal Radiology 10/07/2025 Encounter Details Date Type Department Care Team (Late st Contact Info) Description 10/07/2025 Telephone [facility] [place] [phone] Samantha Abrams, Clerical Staff Abnormal Radiology Social History Tobacco Use Types Packs/Day Years [...] on file documented as of this encounter Miscellaneous Notes * Telephone Encounter - Enriqueta Ma RN - 10/07/2025 2:20 PM EST scheduled 10/11/25 at [facility] * Telephone Encounter - Enriqueta Ma RN - 10/07/2025 8:08 AM EST Additional breast imaging recommended: Auto generated letter sent for pt to Central Scheduling to schedule or call the breast health line nurse at [phone] with questions or concerns. * Telephone Encounter - Samantha Abrams, Clerical Staff - 10/07/2025 8:07 AM EST Insurance:[employer] Ordering Provider:Jarrod documented in this encounter Plan of Treatment Upcoming Encounters Date Type Department Care Team (Late st Contact Info) Description 11/16/2025 9:45 AM EST Appointment [facility] [address] [place] [address] Coral Tomlin MD [address] [place] [address] 11/22/2025 9:40 AM EST Office Visit [facility] [address] [place] [address] Coral Tomlin MD [address] [place] [address] documented as of this encounter Visit Diagnoses Not on filedocumented in this encounter
--- OUTSIDE RECORDS SUMMARY | 2025-11-10 20:44 | XMS_ITS | Encounter Summary ---
Author Organization [facility] Address [address] [place] [address] Care Team Providers Care Signs Sales Representative Name Role Phone Unavailable Primary Care Provider Unavailabl e Encounter Details Date Type Department Care Team (Latest Contact Info) Description 09/29/2025 Results Follow-Up [facility] [address] [place] [address] Coral Tomlin MD [address] [place] [address] SEDIMENTATION RATE AUTOMATED-QUEST, C REACTIVE PROTEIN-QUEST, RHEUMATOID FACTOR QUANTITATIVE-QUEST, Additional followed-up results: 9 Social History Tobacco Use Types Packs/Day Years [...] Notes * Coral Tomlin MD - 09/29/2025 3:57 PM EST reviewed labs done on 09/22/25 - sed 51, C-RP 15.5 - normal iron, TIBC, % saturation is low - neg RF, CCP, HLA-B27 - normal CK, LDH, ferritin - TB quant negative- 09/22/25 - negative HEMA, myositis panel documented in this encounter Plan of Treatment Upcoming Encounters Date Type Department Care Team (Late st Contact Info) Description 11/16/2025 9:45 AM EST Appointment [facility] [address] [facility] [place] [address] Coral Tomlin MD [address] [place] [address] 11/22/2025 9:40 AM EST Office Visit [facility] [address] [place] [address] Coral Tomlin MD [address] [place] [address] documented as of this encounter Visit Diagnoses Not on filedocumented in this encounter
== END 2025-11-10 23:59 | disposition home or self-care (01) ==
LOC: LAB.DROPOF 20:37
PROVIDERS: PCP Nurse Practitioner; Visit Provider Nurse Practitioner
DX: E78.5 Hyperlipidemia, unspecified (principal); E66.9 Obesity, unspecified; I10 Essential (primary) hypertension; Z86.39 Personal history of other endocrine, nutritional and metabolic disease
CPT/HCPCS: 80053; 83036